=== PATIENT | male | born 1940 | race Caucasian/White ===

== ENCOUNTER 2018-02-18 14:42 | Outpatient (REF) | payer MEDICARE, SELFPAY ==
[2018-02-19 02:01] LABS: HCT 47.4 % (40.0-50.0); HGB 15.6 g/dL (13.5-17.5); Mean Corp. HGB Concentration 32.9 g/dL (32.0-36.0); Mean Corpuscular Hemoglobin 30.3 pg (27.0-33.0); Mean Platelet Volume 11.9 fL (8.0-11.0); Platelet Count 192 x1000/uL (130-400); RBC 5.15 m/cumm (4.50-6.00); RBC Distribution Width 13.7 % (11.8-14.1); White Blood Cell Count 8.32 k/cumm (4.4-10.8)
[2018-02-19 02:06] LABS: ALT 39 U/L (12-78); AST 31 U/L (15-37); Albumin 4.4 g/dL (3.4-5.0); Alkaline Phosphatase 51 U/L (46-116); Anion Gap 8.8 mmol/L (3-11); BUN 15 mg/dL (7-18); Bilirubin, Total 1.1 mg/dL (0.2-1.0); CO2 28.2 mmol/L (21.0-32.0); CREATININE 0.92 mg/dL (0.70-1.30); Calcium 9.3 mg/dL (8.5-10.1); Chloride 103 mmol/L (98-107); Glucose 94 mg/dL (70-100); Potassium 4.1 mmol/L (3.5-5.1); Sodium 140 mmol/L (136-145); Total Protein 8.2 g/dL (6.4-8.2)
[2018-02-19 02:38] LABS: Cholesterol 235 mg/dL (50-200); HDL Cholesterol 46 mg/dL (40-60); LDL CHOLESTEROL 178 mg/dL (<100); Triglyceride 63 mg/dL (30-150)
== END 2018-02-18 14:43 ==
LOC: NCHCN 14:42
PROVIDERS: Visit Provider Family Medicine
DX: E78.5 Hyperlipidemia, unspecified (principal); E11.9 Type 2 diabetes mellitus without complications; I10 Essential (primary) hypertension
CPT/HCPCS: 80053; 80061; 83721; 85027

== ENCOUNTER 2018-03-11 08:59 | Outpatient (REF) | payer MEDICARE, SELFPAY ==
[2018-03-11 22:58] LABS: ALT 49 U/L (12-78); AST 39 U/L (15-37); Albumin 4.3 g/dL (3.4-5.0); Alkaline Phosphatase 47 U/L (46-116); Bilirubin, Total 1.1 mg/dL (0.2-1.0); Total Protein 7.7 g/dL (6.4-8.2)
[2018-03-11 23:25] LABS: Bilirubin, Direct 0.26 mg/dL (0.00-0.20)
== END 2018-03-11 09:19 ==
LOC: NCHCN 08:59
PROVIDERS: Visit Provider Family Medicine
DX: E78.5 Hyperlipidemia, unspecified (principal); I10 Essential (primary) hypertension; E11.9 Type 2 diabetes mellitus without complications
CPT/HCPCS: 80076

== ENCOUNTER 2018-04-24 20:11 | Outpatient (REF) | payer MEDICARE, OTHER, SELFPAY | END 2018-04-24 20:31 | LOC: NCHCN 20:11 | PROVIDERS: Visit Provider Family Medicine | DX: Z79.01 Long term (current) use of anticoagulants (principal); Z53.8 Procedure and treatment not carried out for other reasons | CPT/HCPCS: 85610 ==

== ENCOUNTER 2018-07-06 15:32 | Outpatient (REF) | payer MEDICARE, OTHER, SELFPAY ==
[2018-07-06 21:17] LABS: ALT 48 U/L (12-78); AST 39 U/L (15-37); Albumin 4.3 g/dL (3.4-5.0); Alkaline Phosphatase 45 U/L (46-116); BUN 13 mg/dL (7-18); Bilirubin, Total 1.1 mg/dL (0.2-1.0); CREATININE 0.93 mg/dL (0.70-1.30); Calcium 9.5 mg/dL (8.5-10.1); Chloride 102 mmol/L (98-107); Glucose 95 mg/dL (70-100); Potassium 3.8 mmol/L (3.5-5.1); Sodium 139 mmol/L (136-145); Total Protein 7.5 g/dL (6.4-8.2)
[2018-07-06 21:43] LABS: Absolute Basophil Count 0.04 k/cumm (0.0-0.2); Absolute Eosinophil Count 0.24 k/cumm (0.0-0.7); Absolute Lymphocyte Count 2.26 k/cumm (1.2-3.4); Absolute Monocyte Count 0.83 k/cumm (0.11-0.7); Absolute Neutrophil Count 5.43 k/cumm (1.2-6.7); Basophils % 0.5; Eosinophils % 2.7; HCT 44.7 % (40.0-50.0); Lymphocytes % 25.7; Mean Corp. HGB Concentration 33.6 g/dL (32.0-36.0); Mean Corpuscular Hemoglobin 31.3 pg (27.0-33.0); Mean Corpuscular Volume 93.1 fL (80-95); Mean Platelet Volume 11.6 fL (8.0-11.0); Monocytes % 9.4; Neutrophils % 61.7; Platelet Count 179 x1000/uL (130-400); RBC Distribution Width 13.1 % (11.8-14.1)
[2018-07-06 22:58] LABS: Bacteria Rare HPF (Negative); C & S Indicated? No; Casts Negative LPF (Negative); Crystals Negative HPF (Negative); Epithelial Cells Rare HPF (Negative); Mucus Negative (Negative); Other Cells Negative (Negative); RBC Negative (0-2); WBC 0-2 HPF (0-5)
== END 2018-07-06 15:52 ==
LOC: NCHCN 15:32
PROVIDERS: Visit Provider Family Medicine
DX: R31.9 Hematuria, unspecified (principal)
CPT/HCPCS: 80053; 81015; 85025

== ENCOUNTER 2019-02-03 09:31 | Outpatient (REF) | payer MEDICARE, OTHER, SELFPAY ==
[2019-02-03 22:01] LABS: Calculated LDL 147 mg/dL; Cholesterol 200 mg/dL (50-200); HDL Cholesterol 44 mg/dL (40-60); Triglyceride 47 mg/dL (30-150)
== END 2019-02-03 09:51 ==
LOC: NCHCN 09:31
PROVIDERS: Visit Provider Registered Nurse
DX: E78.5 Hyperlipidemia, unspecified (principal)
CPT/HCPCS: 80061; 83721

== ENCOUNTER 2020-05-17 22:51 | Outpatient (REF) | payer MEDICARE, OTHER, SELFPAY ==
[2020-05-17 22:25] LABS: Anion Gap 10.7 mmol/L (3-11); BUN 19 mg/dL (7-18); CO2 26.3 mmol/L (21.0-32.0); CREATININE 0.93 mg/dL (0.70-1.30); Calcium 9.2 mg/dL (8.5-10.1); Chloride 104 mmol/L (98-107); Glucose 112 mg/dL (74-106); Sodium 141 mmol/L (136-145)
== END 2020-05-17 23:11 ==
LOC: NCHCN 22:51
PROVIDERS: Visit Provider Registered Nurse
DX: I10 Essential (primary) hypertension (principal); R73.03 Prediabetes; I48.91 Unspecified atrial fibrillation
CPT/HCPCS: 80048

== ENCOUNTER 2020-11-15 07:55 | Outpatient (REF) | payer MEDICARE, OTHER, SELFPAY ==
[2020-11-15 22:04] LABS: Calculated LDL 161 mg/dL (<100); Cholesterol 213 mg/dL (<200); HDL Cholesterol 40 mg/dL (40-60); Triglyceride 64 mg/dL (<150)
[2020-11-15 22:07] LABS: Hemoglobin A1C 5.8 % (<5.7)
== END 2020-11-15 07:56 | disposition home or self-care (01) ==
LOC: NCHCN 07:55
PROVIDERS: Visit Provider Registered Nurse
DX: R73.03 Prediabetes (principal); E78.5 Hyperlipidemia, unspecified
CPT/HCPCS: 80061; 83036

== ENCOUNTER 2023-06-28 18:45 | Emergency (ER) | payer MEDICARE, OTHER, SELFPAY ==
[2023-06-28] VITALS (9 sets, daily range): BP systolic 109–147; BP diastolic 53–93; PULSE 67–108; RESP 18; TEMP 36.5–36.6; O2SAT 100
--- NOTE | 2023-06-28 18:18 | NUR.NOTE ---
Accessed pt [facility] for patient information. [facility] has no past medical history. Nursing Note:
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
[2023-06-28 20:42] LABS: Abs Immature Grans 0.08 10^3/uL (0.0-0.06); Absolute Lymphocyte Count 1.32 10^3/uL (1.2-3.4); Absolute Monocyte Count 1.31 10^3/uL (0.1-0.8); Basophils % 0.3; Eosinophils % 0.1; HCT 41.5 % (40.0-50.0); HGB 14.5 g/dL (13.5-17.5); Immature Grans % 0.5; Lymphocytes % 8.9; MCH 31.4 pg (27.0-33.0); MCHC 34.9 % (32.0-36.0); MCV 90 fL (80-95); MPV 10.3 fL (8.0-11.0); Monocytes % 8.8; Neutrophils % 81.4; Platelet Count 216 10^3/uL (130-400); RBC 4.62 10^6/uL (4.36-5.78); WBC 14.87 10^3/uL (4.4-10.8)
[2023-06-28 20:43] LABS: Absolute Basophil Count 0.04 10^3/uL (0.0-0.2); Absolute Eosinophil Count 0.01 10^3/uL (0.0-0.7)
[2023-06-28 21:06] LABS: ALT 38 U/L (16-63); AST 43 U/L (15-37); Albumin 3.2 g/dL (3.4-5.0); Alkaline Phosphatase 49 U/L (46-116); Anion Gap 10.3 mmol/L (3-11); BUN 23 mg/dL (7-18); Bilirubin, Total 0.9 mg/dL (0.2-1.0); CO2 28.7 mmol/L (21.0-32.0); CREATININE 1.1 mg/dL (0.70-1.30); Calcium 9.5 mg/dL (8.5-10.1); Chloride 103 mmol/L (98-107); ETHANOL BLOOD < 3.0 mg/dL (<10); Estimated GFR 67.44 (mL/min/1.73m2); Glucose 122 mg/dL (74-106); Potassium 3.7 mmol/L (3.5-5.1); Sodium 142 mmol/L (136-145); TSH (W/Ref FT4) 0.79 uIU/mL (0.36-3.74); Total Protein 7.1 g/dL (6.4-8.2)
[2023-06-28 21:07] LABS: Acetaminophen < 2 ug/mL (10-30); Salicylate < 2.8 mg/dL (<2.8)
--- NOTE | 2023-06-28 21:30 | TELEP.MEDR_ITS ---
Date of service: 06/28/23 Time of Service: 21:30 Telepharmacy Home Med Rec Allergies Allergies: statins Allergy (Intermediate, Uncoded 06/28/23 19:21) Other (See Comment) Interview Person Interviewed: pt is unable to review his medication list and a family member or caregiver is not available Sources Sources used to compile medication list: Other Changes made to Home Medication List: ADDITIONS: unable to complete med review DELETIONS: see below CHANGES: see below Additional Notes Additional Notes: pt is unable to participate in a med review and I am unable to verify any of the meds listed below or last dose taken. I found a note from Letitia Sorensen MD with psychiatry in the pt's EPIC chart . The med list as of 06/13/23 is.... amlodipine 2.5 mg po daily donepezil 5 mg po every evening melatonin 3 mg po at bedtime memantine 10 mg 2x daily metoprolol succinate (Toprol XL) 50 mg at bedtime Miralax 17 gm po daily rivaroxaban 20 mg po every evening sertraline 50 mg po every evening simvastatin 20 mg po at bedtime Recommended Changes Recommended Changes(reason for recommendation): Telepharmacy was unsuccessful at completing medication review. Pt is unable to participate and no family member or caregiver available. We used a med list found in the pt's EPIC chart from 06/13/23 to compile the list above. If circumstances change that would allow for review of medications for this inpatient encounter, please contact the [facility] Medication Reconciliation Pharmacist at .
--- NOTE | 2023-06-28 22:17 | W.EDPROG ---
Date of service: 06/28/23 Time of Service: 22:55 Medical Decision Making This patient was signed out to me. Please see previous notes for H&P and initial eval. In brief, 83yo M presenting with suicidal behavior, agitation. Medically cleared, evalauted by [facility]. EE paperwork completed, pending second cert and placement. Overnight patient transferred to [facility]. Home meds ordered. No acute behavioral events. Signed out to oncoming physician, awaiting second cert and placement. Quality:[facility] Health Related Social Needs: No Data to Display Sign Out Sign Out Data: Sign Out Comment: EE filled out, medically cleared psychosis, SI, aggressive behavior hasn't required any medications in ED pending second cert Last updated by Martha Cameron MD at 06/28/23 23:22 Sign Out Comment: 83yo M here with psychosis, SI, aggressive behavior. No aggression while in the ED. Medically cleared, home meds ordered, EE done. Pending 2nd cert and placement. Last updated by Yolanda Cox MD at 06/29/23 04:35 Discharge Plan Discharge Details Chief Complaint: PsychEval Clinical Impression: Aggressive behavior, Suicide attempt Primary Care Provider: Unknown,Unknown ED Provider: Yolanda Cox Home Meds and New Rx's Prescriptions: No Action Xarelto 20 mg tablet 20 mg PO DAILY Rx Instructions: must administer with evening meal metoprolol succinate 50 mg tablet extended release 24 hr 50 mg PO DAILY senna 8.6 mg capsule 8.6 mg PO QD-BID PRN melatonin 3 mg capsule 3 mg PO HS PRN lorazepam [Ativan] 0.5 mg tablet 0.5 mg PO TID risperidone [Risperdal] 0.5 mg tablet 0.5 mg PO BID olanzapine [Zyprexa] 5 mg tablet 5 mg PO BID amlodipine 5 mg tablet 5 mg PO DAILY sertraline 50 mg tablet 50 mg PO DAILY memantine 5 mg tablet 5 mg PO BID polyethylene glycol 3350 [Miralax] 17 gram/dose powder 17 g PO DAILY PRN
[2023-06-28 22:49] LABS: Bilirubin Small (Negative); Blood Negative (Negative); Clarity Clear (Clear); Glucose Negative (Negative); Ketones 15 mg/dL (Negative); Leukocyte Esterase Negative (Negative); Nitrite Negative (Negative)
[2023-06-28 22:56] LABS: RBC Negative HPF (0-2); WBC Negative HPF (0-5)
[2023-06-28 22:57] LABS: Bacteria Rare HPF (Negative); C & S Indicated? No; Casts Negative LPF (Negative); Crystals Negative HPF (Negative); Epithelial Cells Rare HPF (Negative); Mucus Negative (Negative)
[2023-06-28 23:03] LABS: *AMPHETAMINES SCREEN URINE Negative (Negative); *BARBITURATES SCREEN URINE Negative (Negative); *BENZODIAZEPINES SCREEN URINE Negative (Negative); Cannabinoids THC Negative (Negative); Cocaine Screen,Urine Negative (Negative); METHADONE URINE SCREEN Negative (Negative); OPIATES URINE SCREEN Negative (Negative)
[2023-06-28 23:09] LABS: Tricyclic Antidepressants Negative (Negative)
--- NOTE | 2023-06-28 23:58 | NUR.NOTE ---
PT was bladder scanned and 151ml urine was in bladder.Nursing Note:
--- NOTE | 2023-06-29 03:34 | NUR.NOTE ---
VT updated on PT status Nursing Note:
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
[2023-06-29] MEDS: amLODIPine 5 MG TAB PO (08:09)
[2023-06-29] MEDS: Memantine 5 MG TAB PO (08:10)
[2023-06-29] MEDS: Sertraline 50 MG TAB PO (08:11)
[2023-06-29] MEDS: risperiDONE 0.5 MG TAB PO (08:11)
[2023-06-29] MEDS: OLANZapine 5 MG TAB PO (08:13)
[2023-06-29 08:30] VITALS: BP 116/71; PULSE 99; RESP 18; TEMP 37.2; O2SAT 99
[2023-06-29] MEDS: Metoprolol CR 50 MG TABCR PO (08:30)
--- NOTE | 2023-06-29 09:26 | CMSP_ITS ---
Date of service: 06/29/23 Time of Service: 09:26 Care Management Safety Plan Status Status: Involuntary Reason for Wait Reason for Wait: Assessment/Screening Safety Plan Safety Plan: INVOLUNTARY FOR INPATIENT PSYCHIATRIC STABILIZATION.? Patient has reportedly been calm and cooperative thus far at [facility]. Awaiting second certification by [facility] Psychiatrist. Safety plan has been established with patient, and care team, to adhere to patient goals, identify restrictions based on behavioral status, address nutrition, and determine allowed personal belongings, tools for hygiene and personal care. Determine level of activity including ambulation, level of supervision, visitors, and determine privileges based on behaviors and level of engagement by pt. SAFETY PLAN: 1. Will remain on suicide precautions, in paper clothes 2. Will remain in Zone B under direct supervision of one-on-one staff at all times provided by [employer]; BROCK, SENIOR QA TESTER reheat furnace operator. 3. May have paper cups, plates, finger foods as well as a cardboard spoon with which to eat meals. 4. Follow [facility] Management of the Admitted Behavioral Health Patient policy. 5. Shower available in Zone B without restriction. 6. Personal belongings-soft items permitted at RN discretion. 7. Visitors-none at this time. 8. Activities: soft cart items approved per RN discretion. 9.? Bathroom available in Zone B without restriction. 10. Phone: limited to [facility] cordless phone at RN discretion. Due to INVOLUNTARY status, patient is being held at [facility] by the Department of Mental Health ([facility]) until 2nd certification by [facility] Psychiatrist can be performed (within 24 hours). Staff will provide de-escalation support (CPI) as needed. If patient wishes to leave [facility], staff will contact [facility] Crisis Screener ([phone]) and Grinder Set Up Operator Internal ([phone]) as soon as possible. In the event of elopement, notify [place] [employer] ([phone]). Patient is currently involuntarily at [facility]. [facility] Frontline Pallet Stone Inserter will continue seeking placement. Please contact the Grinder Set Up Operator Internal for any needed changes to Safety Plan. Safety plan has been provided to interdepartmental care team. Patient will be transported by [employer] at time of discharge.
--- NOTE | 2023-06-29 09:26 | PDOC.CMSAFE ---
Date of service: 06/29/23 Time of Service: 09:26 Care Management Safety Plan Status Status: Involuntary Reason for Wait Reason for Wait: Assessment/Screening Safety Plan Safety Plan: INVOLUNTARY FOR INPATIENT PSYCHIATRIC STABILIZATION.? Patient has reportedly been calm and cooperative thus far at [facility]. Awaiting second certification by [facility] Psychiatrist. Safety plan has been established with patient, and care team, to adhere to patient goals, identify restrictions based on behavioral status, address nutrition, and determine allowed personal belongings, tools for hygiene and personal care. Determine level of activity including ambulation, level of supervision, visitors, and determine privileges based on behaviors and level of engagement by pt. SAFETY PLAN: 1. Will remain on suicide precautions, in paper clothes 2. Will remain in Zone B under direct supervision of one-on-one staff at all times provided by [employer]; BROCK, SALVAGE REPAIRER insurance licensing supervisor. 3. May have paper cups, plates, finger foods as well as a cardboard spoon with which to eat meals. 4. Follow [facility] Management of the Admitted Behavioral Health Patient policy. 5. Shower available in Zone B without restriction. 6. Personal belongings-soft items permitted at RN discretion. 7. Visitors-none at this time. 8. Activities: soft cart items approved per RN discretion. 9.? Bathroom available in Zone B without restriction. 10. Phone: limited to [facility] cordless phone at RN discretion. Due to INVOLUNTARY status, patient is being held at [facility] by the Department of Mental Health ([facility]) until 2nd certification by [facility] Psychiatrist can be performed (within 24 hours). Staff will provide de-escalation support (CPI) as needed. If patient wishes to leave [facility], staff will contact [facility] Crisis Screener ([phone]) and Perfume Compounder ([phone]) as soon as possible. In the event of elopement, notify [place] [employer] ([phone]). Patient is currently involuntarily at [facility]. [facility] Frontline Account Consultant will continue seeking placement. Please contact the Perfume Compounder for any needed changes to Safety Plan. Safety plan has been provided to interdepartmental care team. Patient will be transported by [employer] at time of discharge.
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
[2023-06-29] MEDS: Acetaminophen 500 MG TAB 1000 MG PO (10:09)
--- NOTE | 2023-06-29 10:09 | NUR.NOTE ---
Nursing Note: Provided with partial med list procured from pt's daughter, Victoria, by physician. Call placed to daughter to clarify medication differences. Per daughter, three medications (olanzapine 5 mg BID, Risperidone 0.5 mg BID, and Lorazepam 0.5 mg TID) were tapered off a year ago. Per daughter, pt had complications to these meds, specifically tremors. Though daughter states, his behavior was better then. Not on current list, Aricept 5mg QD, prescribed as an experiment, because schizophrenia is really rare for his age. Also updated is the dose change of Amlodipine 2.5 mg QD vs 5.0 mg in current records, and simvastatin 20mg QD.
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
--- NOTE | 2023-06-29 17:15 | DI.CT_ITS ---
Exam(s) CT HEAD WO EXAM: CT HEAD WO CLINICAL HISTORY: Altered mental status. TECHNIQUE: Imaging Protocol: Axial computed tomography images with coronal and sagittal reformatted images were created and reviewed COMPARISON: No exams were available for comparison FINDINGS: Ventricles and Extra axial spaces: Normal in size and morphology for the patient's age. Hemorrhage: None. Cerebral parenchyma: There are areas of decreased attenuation in the white matter most consistent wit h small vessel ischemic disease. No acute mass effect. Midline shift: None. Brainstem/Cerebellum: Normal. Calvarium: Normal. Visualized Paranasal sinuses/Mastoids: Clear. Soft Tissues: Unremarkable. IMPRESSION: No acute intracranial process. RADIATION DOSE DELIVERED: 678.9mGy.cm Total DLP DATA REPOSITORY: All CT scans at this facility are submitted to the National Radiology Data Registry (NRDR) Dose Index Registry (DIR) with the [employer] (ACR). RADIATION OPTIMIZATION: All CT scans at this facility use at least one of these dose optimization te chniques: automated exposure control; mA and/or kV adjustment per patient size (includes targeted exa ms where dose is matched to clinical indication); or iterative reconstruction.
--- NOTE | 2023-06-29 18:17 | DI.VRAD_ITS ---
PROCEDURE INFORMATION: Exam: CT Head Without Contrast Exam date and time: 06/29/2023 5:53 PM Age: 83 years old Clinical indication: Altered mental status/memory loss TECHNIQUE: Imaging protocol: Computed tomography of the head without contrast. COMPARISON: No relevant prior studies available. FINDINGS: Brain: Diffuse cerebral atrophy, consistent with patient's age. Cerebral ventricles: Ventricles are in proportion to the degree of atrophy. Paranasal sinuses: Visualized sinuses are unremarkable. No fluid levels. Mastoid air cells: Visualized mastoid air cells are well aerated. Bones/joints: There are vertebral and internal carotid artery calcifications. Soft tissues: There is a right parietal scalp calcification, likely representing an epidermoid or sebaceous cyst. IMPRESSION: No large territorial infarct or intracranial bleed. Dictated and Authenticated by: John Ramirez MD. Ordering:MAUREEN German MD
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
--- NOTE | 2023-06-30 02:25 | NUR.NOTE ---
Assumed care of pt at 2200, pt sleeping and has not had his 2000 meds, FPJose Alfredo
--- NOTE | 2023-06-30 03:13 | NUR.NOTE ---
Pt is awake and wandering around, he refused his medications, he is trying to open doors to the outside to get out, FPJ
[2023-06-30 07:30] VITALS: BP 134/83; PULSE 97; RESP 18; TEMP 36.4; O2SAT 97
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
--- NOTE | 2023-06-30 17:57 | CMSP_ITS ---
Date of service: 06/30/23 Time of Service: 17:58 Care Management Safety Plan Status Status: Voluntary Reason for Wait Reason for Wait: Inpatient Admission Safety Plan Safety Plan: Pt was initially brought to [facility] involuntarily. A second certification was completed and not upheld, therefore Jorge Luis is currently voluntary, and may leave, if he so desires. The recommendation from the care team at this time is psychiatric stabilization; referrals were placed at [facility] and [facility] for geriatric psychiatric stabilization. VOLUNTARY FOR INPATIENT PSYCHIATRIC STABILIZATION.? Patient is appropriate in all interactions since arriving at [facility]; Pt has demonstrated appropriate coping and communication skills, has articulated his or her needs and concerns and is fully engaged during staff interactions. Safety plan has been established with patient, and care team, to adhere to patient goals, identify restrictions based on behavioral status, address nutrition, and determine allowed personal belongings, tools for hygiene and personal care. Determine level of activity including ambulation, level of supervision, visitors, and determine privileges based on behaviors and level of engagement by pt. SAFETY PLAN: 1. Will remain on suicide precautions, in paper clothes 2. Will remain in Zone B under direct supervision of one-on-one staff at all times provided by [employer]; [employer], SHIPFITTERS SUPERVISOR barrel inspector. 3. May have paper cups, plates, finger foods as well as a cardboard spoon with which to eat meals. 4. Follow [facility] Management of the Admitted Behavioral Health Patient policy. 5. Shower available in Zone B without restriction. 6. Personal belongings-soft items permitted at RN discretion. 7. Visitors-none at this time. 8. Activities: soft cart items approved per RN discretion. 9.? Bathroom available in Zone B without restriction. 10. Phone: limited to [facility] cordless phone at RN discretion. Due to VOLUNTARY status, if patient wishes to leave [facility], staff will contact [facility] Crisis Screener ([phone]), available 13/01, and On-Call Steam Fitter Supervisor ([phone]), available during regular business hours, as soon as possible. In the event of elopement, notify [facility] Police ([phone]). Patient is currently voluntarily at [facility] and seeking inpatient admission when a bed becomes available. [facility] Frontline Depot Agent will continue seeking placement. Please contact the [employer] Field Processing Supervisor Steam Fitter Supervisor ([phone]) and [facility] Depot Agent ([phone]) for any needed changes in the Safety Plan. Safety plan has been provided to interdepartmental care team.
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
[2023-07-01] MEDS: OLANZapine 5 MG TAB PO (01:53)
[2023-07-01] MEDS: risperiDONE 0.5 MG TAB PO (01:53)
[2023-07-01] MEDS: Memantine 5 MG TAB PO (01:53)
[2023-07-01] MEDS: Rivaroxaban 10 MG TABLET 20 MG PO (01:54)
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
[2023-07-01 07:38] VITALS: BP 117/75; PULSE 66; RESP 16; TEMP 36.6; O2SAT 94
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
--- NOTE | 2023-07-04 19:37 | NUR.NOTE ---
Patient transferred to [facility]. Hearing aides were left behind. I tried calling his daughter and the phone number is no longer in service. Nursing Note:
== END 2023-07-01 13:45 ==
PROVIDERS: Emergency Medicine; Emergency Provider Emergency Medicine
DX: T14.91XA Suicide attempt, initial encounter (principal); R41.82 Altered mental status, unspecified
CPT/HCPCS: 00123; 36415; 80053; 80307; 87635; 99285; H0046; 70450; 80320; 80329; 81003; 81015; 84443; 85025

== ENCOUNTER 2023-07-09 14:38 | Inpatient (IN) | payer MEDICARE, OTHER, SELFPAY ==
[2023-07-09 13:10] VITALS: BP 124/71; PULSE 86; RESP 18; TEMP 36.4; O2SAT 99
[2023-07-09] MEDS: Memantine 5 MG TAB 10 MG PO (21:12)
[2023-07-09] MEDS: traZODone 50 MG TAB PO (21:12)
[2023-07-09] MEDS: OLANZapine 5 MG TAB PO (21:12)
--- NOTE | 2023-07-09 23:27 | NUR.NOTE ---
Pt is very restless in his room. He paces and frequently walks down the hallways looking for a way out. He has visual and auditory hallucinations. He stated that planes are landing and he needs to direct them to his room. He then put his hand by his ear and said, I can hear them coming. He also took off his shirt in his room and was standing getting a treatment done. RN and staff re-orient pt with every interaction but he remains confused. Pt did take all evening medications. Security and all staff assisting with observing pt for his safety. He refuses to have a bed alarm/Swift alarm under him. When placed on the chair he removes it and states, I don't need that thing. Pt room is close to nursing station. Pt is steady when ambulating. skelp processor and nursing catastrophe claims supervisor aware of pt condition. Nursing Note:
[2023-07-10 00:17] VITALS: BP 127/75; PULSE 87; RESP 17; TEMP 36.4; O2SAT 99
[2023-07-10 07:51] VITALS: BP 130/72; PULSE 88; RESP 18; TEMP 36.2; O2SAT 95
[2023-07-10] MEDS: Sertraline 50 MG TAB PO (08:15)
[2023-07-10] MEDS: Metoprolol CR 50 MG TABCR PO (08:15)
[2023-07-10] MEDS: Rivaroxaban 10 MG TABLET 20 MG PO (08:15)
--- NOTE | 2023-07-10 08:15 | PDOC.CMIN ---
Date of service: 07/10/23 Time of Service: 08:15 Care Management Initial Assmt Initial Assessment PREVIOUS FUNCTIONAL STATUS/SOCIAL/FAMILY SUPPORTS:: Jorge Luis lives alone in [place]. ADVANCE DIRECTIVES:: none PFSH All Active Problems (Updated 06/28/23 @ 22:59 by Martha Cameron MD) Suicide attempt (Acute) Aggressive behavior (Acute) Social History Smoking risk assessment performed?: No SDOH(Care Management) Screening Will the Patient Participate in the Screening?: Unable to obtain
[2023-07-10] MEDS: amLODIPine 5 MG TAB PO (08:16)
[2023-07-10] MEDS: Memantine 5 MG TAB 10 MG PO ×2 (08:16→20:39)
[2023-07-10] MEDS: OLANZapine 5 MG TAB PO ×2 (08:24→20:38)
--- NOTE | 2023-07-10 08:30 | CMSA_ITS ---
Date of service: 07/10/23 Time of Service: 08:30 SB Psychosocial/Act. [facility] Hospital Admission Admission Date: 07/09/23 Admission From:: [facility] Diagnosis:: Lewie body dementia with behavioral disturbances Swing Bed Admission Swing Bed Admit Date:: 07/09/23 Swing Bed Level of Care: Level 2/ICF Social Supports PREVIOUS FUNCTIONAL STATUS/SOCIAL/FAMILY SUPPORTS:: Jorge Luis lives alone in a single family home in [place]. 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 He is impulsive and cannot be left alone. Effortds sre underway to secure placement for him an a SNF or other care setting where he can be supervised. Hand Laster: Felisa Vallecillo Date Assessment was completed:: 07/09/23
--- NOTE | 2023-07-10 08:33 | CMSCP_ITS ---
Date of service: 07/10/23 Time of Service: 08:33 Swingbed Plan of Care Activites/Discharge Plan of care: SWING BED PROGRAM ACTIVITIES/DISCHARGE PLAN OF CARE ACTIVITIES PLAN Date:07/10/23 Identified Need:individualized activity plan Intervention/Plan:Jorge Luis enjoys walking and interacting with staff. He has been unable to concentrate on puzzles or coloring books from the activity cart. He would enjoy pet therapy or music therapy if available. Initials [facility] DISCHARGE PLAN Date:07/10/23 Identified Need:safe discharge plan. Intervention/Plan:Referrals have been sent to all of the SNFs in [place] and several in [place] and [place]. No bed offers have been received. Jorge Luis will remain at [facility] until a safe discharge plan can be formulated. [facility]
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
--- NOTE | 2023-07-10 14:45 | PDOC.CMIN ---
Date of service: 07/10/23 Time of Service: 14:46 Care Management Initial Assmt Initial Assessment REASON FOR HOSPITALIZATION:: psychiatric/terminal gauger supervisor placement PREVIOUS FUNCTIONAL STATUS/SOCIAL/FAMILY SUPPORTS:: Jorge Luis lives alone in a single family home in [facility]. He has 2 daughters, Christy and Victoria who is his DPOA and HCA. He is independent with ADLs however he does currently have psychiatric issues that may impede his ability to acre for himself. CURRENT FUNCTIONAL STATUS:: Jorge Luis was sitting in a chair when CM met with him. He has been restless all morning and continues to try to leave, however has been redirectable and returns to his room. He has not been aggressive and has cooperated with care. CM spoke with patient's daughter Victoria Horner who is his DPOA. She stated that her father had his first psychotic break in 2020 after caring for his disabled for several years. He was hospitalized at that time and did quite well and was able to return home and live independently. He has been followed by [facility]. Victoria's plan is to have her father placed in terminal gauger supervisor care. Jorge Luis does not have a payer source and a long-term Medicaid application has not been completed. Victoria intends to work on that this weekend. he is currently in SB-2, self pay status. ADVANCE DIRECTIVES:: none Has patient been provided with info about the portal/API?: Yes Did the patient sign up for the portal?: No CODE STATUS:: Full Code INSURANCE COVERAGE / FINANCIAL ISSUES:: Medicare PRIMARY CARE PHYSICIAN:: unknown POTENTIAL DISCHARGE NEEDS:: placement in a long-term care facility ANTICIPATED BARRIERS TO DISCHARGE:: securing a bed in a LTC facility TRANSPORTATION:: to be determined by disposition PLAN:: Jorge Luis has no clear discharge plan at this time. His daughter wants him placed in terminal gauger supervisor care however he does not have a payer source and is not necessarily in agreement. He was sent to [facility] following a brief stay at [facility] facility in [place], [place]. PFSH All Active Problems (Updated 07/10/23 @ 14:07 by Anna Lira NP) Psychiatric disorder (Acute) Suicide attempt (Acute) Aggressive behavior (Acute) Social History Smoking risk assessment performed?: No SDOH(Care Management) Screening Will the Patient Participate in the Screening?: Unable to obtain
[2023-07-10] MEDS: Polyethylene Glycol 3350 17 GM PACKET PO (16:56)
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
[2023-07-10 20:00] VITALS: BP 128/79; PULSE 95; RESP 18; TEMP 36.9; O2SAT 98
[2023-07-10] MEDS: traZODone 50 MG TAB PO (20:38)
[2023-07-10] MEDS: Melatonin 3 MG TAB 6 MG PO (20:39)
[2023-07-11 07:24] VITALS: BP 110/72; PULSE 95; RESP 18; TEMP 36.2; O2SAT 97
[2023-07-11] MEDS: OLANZapine 5 MG TAB PO (08:17)
[2023-07-11] MEDS: Metoprolol CR 50 MG TABCR PO (08:18)
--- NOTE | 2023-07-11 09:42 | NUR.NOTE ---
Pt was suspicious this am and refused most of his morning meds, only took metoprolol and olanzapine. Pt has been on the toilet several times this am with no BM, offered miralax or prune juice, he declined. Pt has a concerned look on his face, so distance given as he clearly is not trusting nursing at this time. Nursing Note:
[2023-07-11 15:08] VITALS: BP 120/67; PULSE 87; RESP 18; TEMP 36; O2SAT 99
--- NOTE | 2023-07-11 16:23 | PDOC.CMPRO ---
Date of service: 07/11/23 Time of Service: 16:23 Care Management Progress Note Progress Note Text Progress Note Text: Jorge Luis remains in SB-2 status. He took some of his medications this morning but refused others. CM spoke to his daughter Victoria on the phone today and discussed the challenges of determining capacity and the impact that will have on her DPOA status. Jorge Luis was seen by Dr. Morillo yesterday who recommended that a psychiatric consultation be obtained to address the question of capacity. Jorge Luis has psychiatric issues with paranoia and elements of psychosis and she felt that a psychiatrist would be best suited to do the evaluation. The consult was ordered.
[2023-07-12 07:30] VITALS: BP 122/68; PULSE 92; RESP 16; TEMP 36.7; O2SAT 99
[2023-07-12] MEDS: Rivaroxaban 10 MG TABLET 20 MG PO (07:31)
[2023-07-12] MEDS: Metoprolol CR 50 MG TABCR PO (07:31)
[2023-07-12] MEDS: amLODIPine 5 MG TAB PO (07:31)
[2023-07-12] MEDS: Memantine 5 MG TAB 10 MG PO (07:31)
[2023-07-12] MEDS: Sertraline 50 MG TAB PO (07:31)
[2023-07-12] MEDS: OLANZapine 5 MG TAB PO (07:31)
[2023-07-12] MEDS: Milk of Magnesia 30 ML CUP PO (08:43)
[2023-07-12] MEDS: Polyethylene Glycol 3350 17 GM PACKET PO (18:10)
[2023-07-13] MEDS: Memantine 5 MG TAB 10 MG PO (08:53)
[2023-07-13] MEDS: Rivaroxaban 10 MG TABLET 20 MG PO (08:53)
[2023-07-13] MEDS: OLANZapine 5 MG TAB PO (08:53)
[2023-07-13] MEDS: amLODIPine 5 MG TAB PO (08:53)
[2023-07-13] MEDS: Metoprolol CR 50 MG TABCR PO (08:53)
[2023-07-13] MEDS: Sertraline 50 MG TAB PO (08:53)
[2023-07-13] MEDS: Milk of Magnesia 30 ML CUP PO (11:31)
[2023-07-13 15:46] VITALS: BP 131/71; PULSE 64; RESP 18; TEMP 36.9; O2SAT 98
[2023-07-14 10:03] VITALS: BP 107/71; PULSE 74; RESP 18; TEMP 36.4; O2SAT 97
[2023-07-14 14:51] VITALS: BP 118/83; PULSE 86; RESP 18; TEMP 36.3; O2SAT 99
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
[2023-07-15 06:15] VITALS: BP 155/90; PULSE 91; RESP 16; TEMP 36.1; O2SAT 98
[2023-07-15] MEDS: Metoprolol CR 50 MG TABCR PO (07:21)
[2023-07-15] MEDS: amLODIPine 5 MG TAB PO (07:21)
[2023-07-15] MEDS: Sertraline 50 MG TAB PO (07:21)
[2023-07-15] MEDS: Rivaroxaban 10 MG TABLET 20 MG PO (07:21)
[2023-07-15] MEDS: Memantine 5 MG TAB 10 MG PO (07:21)
[2023-07-15] MEDS: OLANZapine 5 MG TAB PO (07:21)
[2023-07-15 14:14] VITALS: BP 114/76; PULSE 64; RESP 16; TEMP 36.1; O2SAT 98
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
== END 2023-07-15 21:41 | DRG 57 ==
PROVIDERS: Admitting Provider Family Medicine; Visit Provider Family Medicine
DX: G31.83 Neurocognitive disorder with Lewy bodies (principal); F02.82 Dementia in other diseases classified elsewhere, unspecified severity, with psychotic disturbance; Z91.51 Personal history of suicidal behavior; I10 Essential (primary) hypertension
CPT/HCPCS: 00123; 99305; 99316

== ENCOUNTER 2023-07-15 21:02 | Inpatient (IN) | payer MEDICARE, OTHER, SELFPAY ==
[2023-07-15 21:42] VITALS: BP 122/79; PULSE 80; RESP 16; TEMP 36.8; O2SAT 97
[2023-07-15 21:56] VITALS: RESP 16
[2023-07-15 22:06] VITALS: BP 122/79; PULSE 80; RESP 16; TEMP 36.8; O2SAT 97
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
--- NOTE | 2023-07-15 22:42 | ED.GENADUL_ITS ---
HPI General Date/Time Provider Initiated Documentation: 07/15/23 21:49 . Limitations to Documentation: altered mental status . Information obtained by: patient and RN/MD . HPI Narrative: 83-year-old male with history of Lewy body dementia with psychosis, was hospitalized on swing bed and deemed to lack decision-making capacity. It was felt that patient cannot be safely discharged. Patient has been labile and at times aggressive. Hospital administration shows patient will be best served in zone B while awaiting placement in an appropriate facility.. Patient was discharged from [facility] and transferred to the emergency department. He has no complaints. Related Data Home Medications Medication Instructions Recorded Confirmed metoprolol succinate 50 mg 50 mg PO DAILY 06/28/23 07/15/23 tablet,extended release 24 hr polyethylene glycol 3350 17 17 g PO DAILY PRN 06/28/23 07/15/23 gram/dose oral powder (Miralax) rivaroxaban 20 mg tablet (Xarelto) 20 mg PO DAILY 06/28/23 07/15/23 sertraline 50 mg tablet 50 mg PO DAILY 06/28/23 07/15/23 memantine 10 mg tablet 10 mg PO BID 07/09/23 07/15/23 acetaminophen 325 mg tablet 650 mg (2 x 325 mg) PO Q6H PRN PRN 07/15/23 07/15/23 #0 tabs amlodipine 5 mg tablet 5 mg PO DAILY #0 tabs 07/15/23 07/15/23 docusate sodium 100 mg capsule 100 mg PO BID PRN PRN Constipation 07/15/23 07/15/23 (Colace) #0 caps magnesium hydroxide 400 mg/5 mL 30 ml PO DAILY PRN PRN ##0 07/15/23 07/15/23 oral suspension (Milk of Magnesia) melatonin 3 mg capsule 6 mg (2 x 3 mg) PO HS PRN #0 caps 07/15/23 07/15/23 olanzapine 5 mg tablet 5 mg PO BID #0 tabs 07/15/23 07/15/23 trazodone 50 mg tablet 50 mg PO HS #0 tabs 07/15/23 07/15/23 Previous Rx's Medication Instructions Recorded acetaminophen 325 mg tablet 650 mg (2 x 325 mg) PO Q6H PRN PRN 07/15/23 #0 tabs amlodipine 5 mg tablet 5 mg PO DAILY #0 tabs 07/15/23 docusate sodium 100 mg capsule 100 mg PO BID PRN PRN Constipation 07/15/23 (Colace) #0 caps magnesium hydroxide 400 mg/5 mL 30 ml PO DAILY PRN PRN ##0 07/15/23 oral suspension (Milk of Magnesia) melatonin 3 mg capsule 6 mg (2 x 3 mg) PO HS PRN #0 caps 07/15/23 olanzapine 5 mg tablet 5 mg PO BID #0 tabs 07/15/23 trazodone 50 mg tablet 50 mg PO HS #0 tabs 07/15/23 Allergies Allergy/AdvReac Type Severity Reaction Status Date / Time statins Allergy Intermediate Other (See Uncoded 07/15/23 21:59 Comment) General Stated Complaint: AMS/LOC JASIEL: 4 Review of Systems Unobtainable due to mental status Exam Const General: cooperative and no acute distress HENMT Head: normocephalic and atraumatic Mouth: moist mucous membranes Eyes Conjunctivae: normal conjunctivae Sclera: normal sclerae Neuro General: patient alert, patient awake and tone normal Cognition: abnormal cognition Speech: speech normal Motor: other (Moving all extremities) Psych Attitude: cooperative Insight: poor Course Vital Signs Vital signs: Vital Signs Temperature 36.8 C 07/15/23 21:42 Pulse 80 07/15/23 21:42 Respiratory Rate 16 07/15/23 21:42 Blood Pressure 122/79 07/15/23 21:42 Pulse Oximetry 97 07/15/23 21:42 Temperature 36.8 C 07/15/23 22:06 Temperature Source Temporal Artery Scan 07/15/23 22:06 Pulse 80 07/15/23 22:06 Respiratory Rate 16 07/15/23 22:06 Respiratory Effort Normal, Non-Labored 07/15/23 21:56 Respiratory Depth Normal 07/15/23 21:56 Respiratory Pattern Normal 07/15/23 21:56 Blood Pressure 122/79 07/15/23 22:06 Blood Pressure Position Sitting 07/15/23 22:06 Pulse Oximetry 97 07/15/23 22:06 Oxygen Delivery Method Room Air 07/15/23 22:06 Oxygen Flow Rate 0 07/15/23 21:42 Pain Level 0 07/15/23 22:06 Medical Decision Making 83-year-old male with history of Lewy body dementia with psychosis, lacks decision-making capacity, transferred from inpatient for to be held while awaiting transfer to appropriate inpatient facility. Patient is cooperative at this time and requesting to rest. Patient was seen by telepsychiatry yesterday and deemed to lack decision-making capacity. Medication recommendations were provided. Plan to follow-up with care management regarding placement. Quality:SDOH Health Related Social Needs: Health related social needs details The patient lives at home alone and does not currently have any heat. PFSH All Active Problems Lewy body dementia with behavioral disturbance (Acute) Patient incapable of making informed decisions (Acute) Encounter for assessment of healthcare decision-making capacity (Acute) Essential hypertension (Acute) Psychosis (Acute) Dementia with behavioral disturbance (Acute) Psychiatric disorder (Acute) Suicide attempt (Acute) Aggressive behavior (Acute) Social History Smoking risk assessment performed?: No Discharge Plan Discharge Details Chief Complaint: AMS/LOC Primary Care Provider: Unknown,Unknown ED Provider: Rey Peck Home Meds and New Rx's Prescriptions: No Action Xarelto 20 mg tablet 20 mg PO DAILY Rx Instructions: must administer with evening meal metoprolol succinate 50 mg tablet extended release 24 hr 50 mg PO DAILY sertraline 50 mg tablet 50 mg PO DAILY polyethylene glycol 3350 [Miralax] 17 gram/dose powder 17 g PO DAILY PRN memantine 10 mg tablet 10 mg PO BID acetaminophen 325 mg Tablet 650 mg PO Q6H PRN PRNQty: 0 0RF trazodone 50 mg Tablet 50 mg PO HS Qty: 0 0RF olanzapine 5 mg Tablet 5 mg PO BID Qty: 0 0RF amlodipine 5 mg Tablet 5 mg PO DAILY Qty: 0 0RF magnesium hydroxide [Milk of Magnesia] 400 mg/5 mL Suspension 30 ml PO DAILY PRN PRNQty: 0 0RF docusate sodium [Colace] 100 mg Capsule 100 mg PO BID PRN PRN (Reason: Constipation) Qty: 0 0RF melatonin 3 mg capsule 6 mg PO HS PRNQty: 0 0RF
--- NOTE | 2023-07-15 23:52 | W.EDPROG ---
Date of service: 07/15/23 Time of Service: 23:52 Medical Decision Making This patient was signed out to me. Please see previous notes for H&P and initial eval. In brief, 83yo M wtih dementia, lacks decision making capacity, requires placement. Telepsych consult placed. Overnight appeared to sleep comfortably. No behavioral events. Signed out to oncoming physician, plan remains as above. Quality:SDOH Health Related Social Needs: Health related social needs details The patient lives at home alone and does not currently have any heat. Sign Out Sign Out Data: Sign Out Comment: 83yo M with Lewy body dementia with psychosis, hospitalized on swing bed and deemed to lack decision-making capacity; felt to be most appropriate for zone B while awaiting placement. Discharged from [place] and transferred to ED. Awaiting placement. Last updated by Yolanda Cox MD at 07/16/23 06:18 Discharge Plan Discharge Details Chief Complaint: AMS/LOC Primary Care Provider: Unknown,Unknown ED Provider: Yolanda Cox Home Meds and New Rx's Prescriptions: No Action Xarelto 20 mg tablet 20 mg PO DAILY Rx Instructions: must administer with evening meal metoprolol succinate 50 mg tablet extended release 24 hr 50 mg PO DAILY sertraline 50 mg tablet 50 mg PO DAILY polyethylene glycol 3350 [Miralax] 17 gram/dose powder 17 g PO DAILY PRN memantine 10 mg tablet 10 mg PO BID acetaminophen 325 mg Tablet 650 mg PO Q6H PRN PRNQty: 0 0RF trazodone 50 mg Tablet 50 mg PO HS Qty: 0 0RF olanzapine 5 mg Tablet 5 mg PO BID Qty: 0 0RF amlodipine 5 mg Tablet 5 mg PO DAILY Qty: 0 0RF magnesium hydroxide [Milk of Magnesia] 400 mg/5 mL Suspension 30 ml PO DAILY PRN PRNQty: 0 0RF docusate sodium [Colace] 100 mg Capsule 100 mg PO BID PRN PRN (Reason: Constipation) Qty: 0 0RF melatonin 3 mg capsule 6 mg PO HS PRNQty: 0 0RF
[2023-07-16] MEDS: Memantine 5 MG TAB 10 MG PO ×2 (08:26→21:40)
[2023-07-16] MEDS: Sertraline 50 MG TAB PO (08:26)
[2023-07-16] MEDS: OLANZapine 5 MG TAB PO ×2 (08:26→21:40)
[2023-07-16] MEDS: amLODIPine 5 MG TAB PO (08:26)
[2023-07-16] MEDS: Metoprolol CR 50 MG TABCR PO (08:26)
[2023-07-16 08:27] VITALS: BP 119/71; PULSE 84; RESP 14; TEMP 37.2; O2SAT 98
[2023-07-16] MEDS: Rivaroxaban 10 MG TABLET 20 MG PO (17:23)
[2023-07-16] MEDS: Melatonin 3 MG TAB 6 MG PO (21:38)
[2023-07-16] MEDS: traZODone 50 MG TAB PO (21:40)
[2023-07-16 22:12] VITALS: BP 111/70; PULSE 65; RESP 18; O2SAT 94
--- NOTE | 2023-07-16 22:13 | NUR.NOTE ---
Assumed care of PT from [facility] Nursing Note:
--- NOTE | 2023-07-16 22:59 | W.EDPROG ---
Date of service: 07/16/23 Time of Service: 23:00 Medical Decision Making This patient was signed out to me. Please see previous notes for H&P and initial eval. In brief, 83yo M with lewey body dementia, lacks decision making capacity, needs facility placement. Remaining in the ED until a placement is found. Overnight no acute events. Appeared to be sleeping comfortably, normal respiratory rate. Did not awaken for assessment. Signed out to oncoming physician; plan remains as above. Quality:SDOH Health Related Social Needs: Health related social needs details The patient lives at home alone and does not currently have any heat. Sign Out Sign Out Data: Sign Out Comment: 83yo M with Lewy body dementia with psychosis, hospitalized on swing bed and deemed to lack decision-making capacity; felt to be most appropriate for zone B while awaiting placement. Discharged from [place] and transferred to ED. Awaiting placement. Last updated by Yolanda Cox MD at 07/16/23 06:18 Sign Out Comment: Lewy body dementia with psychosis, awaiting placement Last updated by Gus Hernandez MD at 07/16/23 16:36 Sign Out Comment: No issues on evening shift. Pending placement due to lack of capacity. Last updated by German Ray MD at 07/16/23 22:42 Discharge Plan Discharge Details Chief Complaint: AMS/LOC Primary Care Provider: Unknown,Unknown ED Provider: Yolanda Cox Home Meds and New Rx's Prescriptions: No Action Xarelto 20 mg tablet 20 mg PO DAILY Rx Instructions: must administer with evening meal metoprolol succinate 50 mg tablet extended release 24 hr 50 mg PO DAILY sertraline 50 mg tablet 50 mg PO DAILY polyethylene glycol 3350 [Miralax] 17 gram/dose powder 17 g PO DAILY PRN memantine 10 mg tablet 10 mg PO BID acetaminophen 325 mg Tablet 650 mg PO Q6H PRN PRNQty: 0 0RF trazodone 50 mg Tablet 50 mg PO HS Qty: 0 0RF olanzapine 5 mg Tablet 5 mg PO BID Qty: 0 0RF amlodipine 5 mg Tablet 5 mg PO DAILY Qty: 0 0RF magnesium hydroxide [Milk of Magnesia] 400 mg/5 mL Suspension 30 ml PO DAILY PRN PRNQty: 0 0RF docusate sodium [Colace] 100 mg Capsule 100 mg PO BID PRN PRN (Reason: Constipation) Qty: 0 0RF melatonin 3 mg capsule 6 mg PO HS PRNQty: 0 0RF
--- NOTE | 2023-07-17 03:44 | NUR.NOTE ---
PT resting in NAD Nursing Note:
[2023-07-17 07:57] VITALS: BP 100/59; PULSE 98; RESP 14; TEMP 36.8; O2SAT 98
[2023-07-17] MEDS: amLODIPine 5 MG TAB PO ×2 (08:23→14:54)
[2023-07-17] MEDS: Memantine 5 MG TAB 10 MG PO ×2 (08:23→14:55)
[2023-07-17] MEDS: Metoprolol CR 50 MG TABCR PO ×2 (08:23→14:55)
[2023-07-17] MEDS: Sertraline 50 MG TAB PO ×2 (08:24→14:55)
[2023-07-17] MEDS: OLANZapine 5 MG TAB PO ×2 (08:24→14:55)
--- NOTE | 2023-07-17 14:57 | NUR.NOTE ---
Nursing Note: Pt provided with daily AM medicaton. Pt appropriate with staff; cooperative, pleasant. Took PO medications without difficulty.
--- NOTE | 2023-07-17 15:08 | ED.PROG_ITS ---
Date of service: 07/17/23 Time of Service: 15:09 Medical Decision Making Patient waiting placement in an appropriate long-term care facility for his dementia with psychotic features. He has been taking his medication as prescribed. He has not demonstrated any aggression. Patient remained stable. Care management noting no receiving facility has been identified as yet. Quality:[facility] Health Related Social Needs: Health related social needs details The patient lives at home alone and does not currently have any heat. Sign Out Sign Out Data: Sign Out Comment: 83yo M with Lewy body dementia with psychosis, hospitalized on swing bed and deemed to lack decision-making capacity; felt to be most appropriate for zone B while awaiting placement. Discharged from [place] and transferred to ED. Awaiting placement. Last updated by Yolanda Cox MD at 07/16/23 06:18 Sign Out Comment: Lewy body dementia with psychosis, awaiting placement Last updated by Gus Hernandez MD at 07/16/23 16:36 Sign Out Comment: No issues on evening shift. Pending placement due to lack of capacity. Last updated by German Ray MD at 07/16/23 22:42 Sign Out Comment: Lewy body dementia, needs placement. No acute events overnight. Last updated by Yolanda Cox MD at 07/17/23 06:21 Discharge Plan Discharge Details Chief Complaint: AMS/LOC Primary Care Provider: Unknown,Unknown ED Provider: Rey Peck Home Meds and New Rx's Prescriptions: No Action Xarelto 20 mg tablet 20 mg PO DAILY Rx Instructions: must administer with evening meal metoprolol succinate 50 mg tablet extended release 24 hr 50 mg PO DAILY sertraline 50 mg tablet 50 mg PO DAILY polyethylene glycol 3350 [Miralax] 17 gram/dose powder 17 g PO DAILY PRN memantine 10 mg tablet 10 mg PO BID acetaminophen 325 mg Tablet 650 mg PO Q6H PRN PRNQty: 0 0RF trazodone 50 mg Tablet 50 mg PO HS Qty: 0 0RF olanzapine 5 mg Tablet 5 mg PO BID Qty: 0 0RF amlodipine 5 mg Tablet 5 mg PO DAILY Qty: 0 0RF magnesium hydroxide [Milk of Magnesia] 400 mg/5 mL Suspension 30 ml PO DAILY PRN PRNQty: 0 0RF docusate sodium [Colace] 100 mg Capsule 100 mg PO BID PRN PRN (Reason: Constipation) Qty: 0 0RF melatonin 3 mg capsule 6 mg PO HS PRNQty: 0 0RF
[2023-07-17] MEDS: Rivaroxaban 10 MG TABLET 20 MG PO (16:42)
--- NOTE | 2023-07-17 23:44 | ED.PROG_ITS ---
Date of service: 07/17/23 Time of Service: 23:44 Medical Decision Making Quality:[facility] Health Related Social Needs: Health related social needs details The patient lives at home alone and does not currently have any heat. Narrative 11:44 PM I have received signout. 07/18/2023 2:13 AM I have seen the patient who is currently sleeping. His nurse told me he was very reluctant to take his nighttime meds and thinks he would benefit from changing his medicines from 8 AM, 5 PM, 8 PM, and 10 PM to 8 AM and 8 PM. She believes this will improve his compliance and I agree. She will evaluate a verbal order and I will cosign at. He is still awaiting geriatric psychiatric placement. Sign Out Sign Out Data: Sign Out Comment: 83yo M with Lewy body dementia with psychosis, hospitalized on swing bed and deemed to lack decision-making capacity; felt to be most appropriate for zone B while awaiting placement. Discharged from [place] and transferred to ED. Awaiting placement. Last updated by Yolanda Cox MD at 07/16/23 06:18 Sign Out Comment: Lewy body dementia with psychosis, awaiting placement Last updated by Gus Hernandez MD at 07/16/23 16:36 Sign Out Comment: No issues on evening shift. Pending placement due to lack of capacity. Last updated by German Ray MD at 07/16/23 22:42 Sign Out Comment: Lewy body dementia, needs placement. No acute events overnight. Last updated by Yolanda Cox MD at 07/17/23 06:21 Sign Out Comment: Patient cooperative and taking medications as prescribed today. Care management notes no long-term placement yet identified. Last updated by Rey Peck MD at 07/17/23 16:01 Sign Out Comment: lewy body dementia, awaiting placement Last updated by Gus Hernandez MD at 07/17/23 23:39 Sign Out Comment: Lewy Body dementia awaiting geripsych admission. No issues overnight. Last updated by Monserrat Shah MD at 07/18/23 07:10 Discharge Plan Disposition Patient Disposition: Admit to [facility] Condition: Serious Discharge Details Clinical Impression: Dementia with Lewy bodies, Psychosis Primary Care Provider: Unknown,Unknown ED Provider: Rey Peck Home Meds and New Rx's Prescriptions: No Action Xarelto 20 mg tablet 20 mg PO DAILY Rx Instructions: must administer with evening meal metoprolol succinate 50 mg tablet extended release 24 hr 50 mg PO DAILY sertraline 50 mg tablet 50 mg PO DAILY polyethylene glycol 3350 [Miralax] 17 gram/dose powder 17 g PO DAILY PRN memantine 10 mg tablet 10 mg PO BID acetaminophen 325 mg Tablet 650 mg PO Q6H PRN PRNQty: 0 0RF trazodone 50 mg Tablet 50 mg PO HS Qty: 0 0RF olanzapine 5 mg Tablet 5 mg PO BID Qty: 0 0RF amlodipine 5 mg Tablet 5 mg PO DAILY Qty: 0 0RF magnesium hydroxide [Milk of Magnesia] 400 mg/5 mL Suspension 30 ml PO DAILY PRN PRNQty: 0 0RF docusate sodium [Colace] 100 mg Capsule 100 mg PO BID PRN PRN (Reason: Constipation) Qty: 0 0RF melatonin 3 mg capsule 6 mg PO HS PRNQty: 0 0RF
[2023-07-18] MEDS: traZODone 50 MG TAB PO ×2 (00:47→20:53)
[2023-07-18] MEDS: Melatonin 3 MG TAB 6 MG PO ×2 (00:47→20:52)
--- NOTE | 2023-07-18 01:20 | NUR.NOTE ---
Nursing Note: Medications in MAR ordered as BID and scheduled for 08:00 and 20:00 shown as given by ML ~08:23 and ~14:55. Unable to verify with nurse ML if these medications were given or charted in error.
[2023-07-18 07:26] VITALS: BP 101/65; PULSE 63; RESP 16; TEMP 36.4; O2SAT 98
[2023-07-18] MEDS: Metoprolol CR 50 MG TABCR PO (08:14)
[2023-07-18] MEDS: amLODIPine 5 MG TAB PO (08:14)
[2023-07-18] MEDS: OLANZapine 5 MG TAB PO ×2 (08:14→20:52)
[2023-07-18] MEDS: Sertraline 50 MG TAB PO (08:15)
[2023-07-18] MEDS: Memantine 5 MG TAB 10 MG PO ×2 (08:15→20:52)
--- NOTE | 2023-07-18 08:19 | NUR.NOTE ---
Nursing Note: Pt sitting on bed after eating breakfast. Polite, pleasant, interactive with staff. Took all AM medications as prescribed.
--- NOTE | 2023-07-18 15:55 | W.EDPROG ---
Date of service: 07/18/23 Time of Service: 15:55 Medical Decision Making Care was signed out by Dr. Shah. Please see her documentation regarding earlier course today and prior documentation regarding ED course since arrival. Patient has taken his meds today's ED for patient has been cooperative today. Taking his medication as prescribed. Care management meeting was held and it was determined that patient should be admitted to the hospitalist service for swing bed status. Patient will continue be held here in zone B as the safest location for him in the hospital. I spoke with Dr. Padilla, discussed ED presentation and course, he will admit the patient. Quality:[facility] Health Related Social Needs: Health related social needs details The patient lives at home alone and does not currently have any heat. Sign Out Sign Out Data: Sign Out Comment: 83yo M with Lewy body dementia with psychosis, hospitalized on swing bed and deemed to lack decision-making capacity; felt to be most appropriate for [facility] B while awaiting placement. Discharged from [place] and transferred to ED. Awaiting placement. Last updated by Yolanda Cox MD at 07/16/23 06:18 Sign Out Comment: Lewy body dementia with psychosis, awaiting placement Last updated by Gus Hernandez MD at 07/16/23 16:36 Sign Out Comment: No issues on evening shift. Pending placement due to lack of capacity. Last updated by German Ray MD at 07/16/23 22:42 Sign Out Comment: Lewy body dementia, needs placement. No acute events overnight. Last updated by Yolanda Cox MD at 07/17/23 06:21 Sign Out Comment: Patient cooperative and taking medications as prescribed today. Care management notes no long-term placement yet identified. Last updated by Rey Peck MD at 07/17/23 16:01 Sign Out Comment: lewy body dementia, awaiting placement Last updated by Gus Hernandez MD at 07/17/23 23:39 Sign Out Comment: Lewy Body dementia awaiting geripsych admission. No issues overnight. Last updated by Monserrat Shah MD at 07/18/23 07:10 Discharge Plan Disposition Patient Disposition: Admit to [facility] Condition: Serious Discharge Details Clinical Impression: Dementia with Lewy bodies, Psychosis Primary Care Provider: Unknown,Unknown ED Provider: Rey Peck Home Meds and New Rx's Prescriptions: No Action Xarelto 20 mg tablet 20 mg PO DAILY Rx Instructions: must administer with evening meal metoprolol succinate 50 mg tablet extended release 24 hr 50 mg PO DAILY sertraline 50 mg tablet 50 mg PO DAILY polyethylene glycol 3350 [Miralax] 17 gram/dose powder 17 g PO DAILY PRN memantine 10 mg tablet 10 mg PO BID acetaminophen 325 mg Tablet 650 mg PO Q6H PRN PRNQty: 0 0RF trazodone 50 mg Tablet 50 mg PO HS Qty: 0 0RF olanzapine 5 mg Tablet 5 mg PO BID Qty: 0 0RF amlodipine 5 mg Tablet 5 mg PO DAILY Qty: 0 0RF magnesium hydroxide [Milk of Magnesia] 400 mg/5 mL Suspension 30 ml PO DAILY PRN PRNQty: 0 0RF docusate sodium [Colace] 100 mg Capsule 100 mg PO BID PRN PRN (Reason: Constipation) Qty: 0 0RF melatonin 3 mg capsule 6 mg PO HS PRNQty: 0 0RF
--- NOTE | 2023-07-18 16:52 | W.PM.HP.N ---
Date of service: 07/18/23 Time of Service: 16:52 Assessment and Plan Assessment and plan (1) Dementia with behavioral disturbance: Status: Acute Assessment and plan: Continue antipsychotics at low dose as per psych consult: Olanzapine, monitor CBC Continue Memantine, sertraline (2) Psychosis: Status: Acute Assessment and plan: As above, no hallucinations (3) Essential hypertension: Status: Acute Assessment and plan: Continue home meds (4) Encounter for assessment of healthcare decision-making capacity: Status: Acute Assessment and plan: Psychiatric consultation done on 07/14:at this time did not have capacity to make medical decisions. (5) Psychiatric disorder: Status: Acute (6) History of atrial fibrillation: Status: Acute Assessment and plan: continue metoprolol and rivaroxaban (7) Hypertension: Status: Chronic Assessment and plan: Continue amlodipine (8) Discharge planning issues: Status: Acute Assessment and plan: Awaiting placement f/u by [facility] Discussed with Dr. Padilla History of Present Illness History of Present Illness Chief Complaint: Altered mental status, suicidal ideation and violent behavior Narrative: This 83 years old male patient with past medical history of psychiatric disorder Lewy body dementia with behavioral disturbance, suicidal ideation with [facility]-psych hospitalization from 07/01/2023 to 07/09/2023 when he returned to [facility], presented to the emergency room at [facility] on 07/10/2023 for evaluation of suicidal ideation, violent and behavior. At the time he was hospitalized on the medical surgical floor until 07/15/23 when he was discharged. Upon discharge the patient was deemed not safe to go home and remained in the emergency room awaiting psychiatric placement. Today the patient was accepted under the hospitalist service as he will remain as a swing bed level two in the emergency department. Patient denies headache, dizziness, hallucinations, shortness of breath, chest pain, abdominal pain, nausea, vomiting, dysuria or hematuria. Patient reports eating well, sleeping well, having a bowel movement 2 days ago, and feeling fine. Patient stating that he wants to be revived and maintain alive. Patient is a full code Review of Systems Constitutional Constitutional: Reports as per HPI and Reports system reviewed and no additional complaints, except as documented Eyes Eyes: Reports as per HPI and Reports system reviewed and no additional complaints, except as documented ENT Ears, Nose, Mouth, and Throat: Reports system reviewed and no additional complaints, except as documented and Reports as per HPI Cardiovascular Cardiovascular: Reports as per HPI and Reports system reviewed and no additional complaints, except as documented Respiratory Respiratory: Reports as per HPI and Reports system reviewed and no additional complaints, except as documented Gastrointestinal Gastrointestinal: Reports as per HPI and Reports system reviewed and no additional complaints, except as documented Genitourinary Genitourinary: Reports system reviewed and no additional complaints, except as documented and Reports as per HPI Musculoskeletal Musculoskeletal: Reports system reviewed and no additional complaints, except as documented and Reports as per HPI Integumentary/Breasts Skin/Breast: Reports system reviewed and no additional complaints, except as documented and Reports as per HPI Neurologic Neurologic: Reports system reviewed and no additional complaints, except as documented and Reports as per HPI Psychiatric Psychiatric: Reports system reviewed and no additional complaints, except as documented and Reports as per HPI Endocrine Endocrine: Reports system reviewed and no additional complaints, except as documented and Reports as per HPI Hematologic/Lymphatic Hematologic/Lymphatic: Reports system reviewed and no additional complaints, except as documented and Reports as per HPI [facility] All Active Problems (Updated 07/18/23 @ 17:50 by Kaitlynn Patel APRN) Discharge planning issues (Acute) Hypertension (Chronic) History of atrial fibrillation (Acute) Psychosis (Acute) Dementia with Lewy bodies (Acute) Lewy body dementia with behavioral disturbance (Acute) Patient incapable of making informed decisions (Acute) Encounter for assessment of healthcare decision-making capacity (Acute) Essential hypertension (Acute) Psychosis (Acute) Dementia with behavioral disturbance (Acute) Psychiatric disorder (Acute) Suicide attempt (Acute) Aggressive behavior (Acute) Social History Smoking risk assessment performed?: No Details: Information not obtained by prior shift. Meds Allergies and Home Medications Allergies Allergy/AdvReac Type Severity Reaction Status Date / Time statins Allergy Intermediate Other (See Uncoded 07/15/23 21:59 Comment) Home Medications Medication Instructions Recorded Confirmed Type metoprolol succinate 50 mg 50 mg PO DAILY 06/28/23 07/15/23 History tablet,extended release 24 hr polyethylene glycol 3350 17 17 g PO DAILY PRN 06/28/23 07/15/23 History gram/dose oral powder (Miralax) rivaroxaban 20 mg tablet (Xarelto) 20 mg PO DAILY 06/28/23 07/15/23 History sertraline 50 mg tablet 50 mg PO DAILY 06/28/23 07/15/23 History memantine 10 mg tablet 10 mg PO BID 07/09/23 07/15/23 History acetaminophen 325 mg tablet 650 mg (2 x 325 mg) PO Q6H PRN PRN 07/15/23 07/15/23 Rx #0 tabs amlodipine 5 mg tablet 5 mg PO DAILY #0 tabs 07/15/23 07/15/23 Rx docusate sodium 100 mg capsule 100 mg PO BID PRN PRN Constipation 07/15/23 07/15/23 Rx (Colace) #0 caps magnesium hydroxide 400 mg/5 mL 30 ml PO DAILY PRN PRN ##0 07/15/23 07/15/23 Rx oral suspension (Milk of Magnesia) melatonin 3 mg capsule 6 mg (2 x 3 mg) PO HS PRN #0 caps 07/15/23 07/15/23 Rx olanzapine 5 mg tablet 5 mg PO BID #0 tabs 07/15/23 07/15/23 Rx trazodone 50 mg tablet 50 mg PO HS #0 tabs 07/15/23 07/15/23 Rx Exam Narrative Exam Narrative: Constitutional The patient is in bed comfortable had difficulty focusing during the interview, is w/o acute distress. HENMT: Head is atraumatic, normocephalic, no lymphadenopathy. Facial structures with normal appearance Eyes: Well aligned, Neck: Normal ROM, no JVD, no meningeal signs Neuro:alert and oriented to self, person, place. No neurological focal deficit Resp: Clear lungs Cardio: irregular rhythm, S1, S2, no murmur, pulses positive to all 4 extremities GI: Abdomen is not distended, soft and non tender, bowel sounds are present : Negative Costovertebral angle tenderness, no bladder distension Back/spine/Pelvis: No back tenderness, normal alignment Integumentary: No skin lesions or rash Extremities: strength 5/5 to bilateral lower and upper extremities Psych: RASS 0, easily irritable during interview Results Last Vital Signs Temp 36.4 C L 07/18/23 07:26 Pulse 63 07/18/23 07:26 Resp 16 07/18/23 07:26 BP 101/65 07/18/23 07:26 Pulse Ox 98 07/18/23 07:26 Time Spent Time spent with Patient: >75 minutes Time was spent: preparing to see the patient(eg.review tests), obtaining and/or reviewing separately otained hiistory, ordering medications,tests, procedures, referring, communicating with other health progressive care unit registered nurse, indepentently interpreting results, counseling the patient and care coordination
[2023-07-18] MEDS: Rivaroxaban 10 MG TABLET 20 MG PO (20:52)
--- NOTE | 2023-07-18 21:48 | NUR.NOTE ---
Nursing Note: Patient laying in bed after taking all evening medications. Patient was calm, polite, and interactive with staff. PSO on unit.
[2023-07-19 06:48] VITALS: BP 113/71; PULSE 90; RESP 14; TEMP 36.8; O2SAT 98
[2023-07-19] MEDS: OLANZapine 5 MG TAB PO ×2 (08:47→22:14)
[2023-07-19] MEDS: amLODIPine 5 MG TAB PO (08:47)
[2023-07-19] MEDS: Metoprolol CR 50 MG TABCR PO (08:48)
[2023-07-19] MEDS: Memantine 5 MG TAB 10 MG PO ×2 (08:49→22:14)
[2023-07-19] MEDS: Sertraline 50 MG TAB PO (08:51)
--- NOTE | 2023-07-19 10:53 | NUR.NOTE ---
Nursing Note: Patient's sister, Britney Roldan called to speak with patient. She was concerned that he would not be able to talk on the phone as he doesnt have his hearing aids. We attempted and patient was able to hear and speak without difficulty with her. 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
[2023-07-19] MEDS: Rivaroxaban 10 MG TABLET 20 MG PO (22:14)
[2023-07-19] MEDS: traZODone 50 MG TAB PO (22:14)
[2023-07-19] MEDS: Melatonin 3 MG TAB 6 MG PO (22:14)
[2023-07-20 07:23] VITALS: BP 117/68; PULSE 84; RESP 14; TEMP 36.8; O2SAT 98
[2023-07-20] MEDS: OLANZapine 5 MG TAB PO ×2 (07:47→19:21)
[2023-07-20] MEDS: Sertraline 50 MG TAB PO (07:47)
[2023-07-20] MEDS: Metoprolol CR 50 MG TABCR PO (07:47)
[2023-07-20] MEDS: Memantine 5 MG TAB 10 MG PO ×2 (07:47→19:21)
[2023-07-20] MEDS: amLODIPine 5 MG TAB PO (07:48)
[2023-07-20] MEDS: Rivaroxaban 10 MG TABLET 20 MG PO (19:21)
[2023-07-20] MEDS: traZODone 50 MG TAB PO (19:21)
[2023-07-20] MEDS: Melatonin 3 MG TAB 6 MG PO (19:21)
[2023-07-21 07:31] VITALS: BP 109/70; PULSE 93; RESP 18; TEMP 36.7; O2SAT 98
[2023-07-21] MEDS: amLODIPine 5 MG TAB PO (07:55)
[2023-07-21] MEDS: Memantine 5 MG TAB 10 MG PO ×2 (07:56→20:35)
[2023-07-21] MEDS: Metoprolol CR 50 MG TABCR PO (07:57)
[2023-07-21] MEDS: OLANZapine 5 MG TAB PO ×2 (07:57→20:35)
[2023-07-21] MEDS: Sertraline 50 MG TAB PO (07:57)
--- NOTE | 2023-07-21 16:18 | CM.SBPSYCH ---
Date of service: 07/18/23 Time of Service: 16:18 SB Psychosocial/Act. [facility] Admission Admission Date: 07/18/23 Admission From:: ED Boarding, Med/Surg SWB2 Diagnosis:: Lewy Body Dementia with behavioral disturbance Swing Bed Admission Swing Bed Admit Date:: 07/09/23 Swing Bed Level of Care: Level 2/ICF Social Supports PREVIOUS FUNCTIONAL STATUS/SOCIAL/FAMILY SUPPORTS:: Jorge Luis lives alone in a single family home in [place]. He has 2 daughters, Christy and Victoria who is his DPOA and HCA. He is independent with ADLs however he does currently have psychiatric issues that may impede his ability to acre for himself. Prior to Admission Living Arrangements/Environment Prior to Admission:: Resided in his own home, until unable to manage as related to behaviors; presented to [facility] ED on 06/28/23, transferred to [facility] facility, returned to [facility] for fci care and lack of disposition 07/09/23. Jorge Luis struggled on inpatient floor to remain in room, environmental stressors and wanting to leave. He transitioned down to Zone B (low stimulation in the ED) with notable improvement in functioning and presentation. Advance Directives for Healthcare Advance Directives for Healthcare: Durable Power of Seat Builder for Healthcare Advance Directive Agent: Document from 2019 stating that daughter Victoria is his general DURABLE POWER OF ELECTROPHONIC ENGINEER. Present Functional Status Cognitive:: Several visits with [facility] neurology. They recommended LP and brain MRI. MRI done 04/19/2022 did not show any strokes but did show temporal lobe atrophy with concern for vascular insult . The biomarkers were positive for Alzheimer's disease (no specifics in note). 07/09/2022 geriatric psychiatry note: Follow-up to review test results as discussed in previous sentence. They wanted to taper him off his atypical antipsychotics at that time. At the time of that note (a year ago) they felt psychosis was well-controlled by report. He has some delusional content but has intact insight into this not being accurate reflection of reality . They do not specifically say what they think is going on with the patient, some sort of dementia or cognitive impairment. Communication:: He seems to be fairly stable and able to function well in a supervised environment when he is given his medications on a regular basis. Unfortunately once he was living on his own, stopped taking his medication. Behavior:: Patient is an 83-year-old gentleman with various diagnosis of psychosis, possible Lewy body dementia, Alzheimer's dementia with behavioral disturbance who had been living in supervised settings (SNF, assisted living) until about 6 weeks ago when he was deemed stable enough to return to his home. Appears that he likely stopped taking his psychiatric medications. He had recurrence of psychosis and exhibited unsafe behavior including turning on his propane line into his house and going outside without adequate clothing on, exhibited aggressive behavior towards family and others. Medical History General Health:: Decreased hearing: Patient refusing to use hearing aids that are in his room, says they are not his (may well not be). I used a pocket talker today and he said the sound was quite acceptable and would like to keep it in his room while he is here. I left a pocket talker in his room. I recommend that pocket Talker be used during conversations if he is agreeable. This should aid in orientation as well. Past Psychiatric Treatment:: Initial geriatric psychiatry (Dr. Deonte Ramirez) consult January 2022. Reported onset of first break July 2021. Paranoid ideation Danielle? Discharged from [facility], to the [facility] in [place] (assisted living?). Just prior to this daughter first noted some memory problems and first episodes of confusion. Reported hearing some voices. His goal was to become independent enough to leave assisted living and return home. It sounds like he was able to do that in May of 2023. -Current compensation vice president at [facility] who is going to be following him (if he continues to go there) is Dr. Letitia Sorensen [facility] psychiatry and [facility] geriatric psychiatry feel that he has some form of dementia. Recommend consultation with [facility] neurology to assist with management as well. Note that [place]'s psychiatry recommended keeping doses of atypical antipsychotics low, as they note this can exacerbate behavior in the setting of Lewy body dementia. Other:: Regarding capacity, he appears to have capacity to make simple decisions at this time. He is able to explain that he should not go outside without being adequately dressed and protected when his very cold outside. Yet he continues to express paranoid delusions, lacks any insight into his dementia or psychosis (not unusual). This would affect his decision making (including taking his medications regularly) if he was in an unsupervised setting. Admission Data Reason for Swing Bed Admission:: No safe disposition. Discharge Plan:: Home with increased [id number] term placement or AFC home Assessment: Retirement care, disposition coordination needs. Log Yard Derrick Operator: Jayla Bonilla Date Assessment was completed:: 07/21/23
--- NOTE | 2023-07-21 16:31 | CM.SWINGPC ---
Date of service: 07/09/23 Time of Service: 16:31 Swingbed Plan of Care Activites/Discharge Plan of care: SWING BED PROGRAM ACTIVITIES/DISCHARGE PLAN OF CARE ACTIVITIES PLAN Date: 07/09/23 Identified Need: Life enrichment during extended hospitalization Intervention/Plan: Staff will continue to offer activity cart and items of interest for Jorge Luis. Initials: MINDY DISCHARGE PLAN Date: 07/09/23 Identified Need: Disposition Coordination Intervention/Plan: Support daughter in coordinating local company intermodal truck driver placement. Initials: MINDY
[2023-07-21] MEDS: Melatonin 3 MG TAB 6 MG PO (20:34)
[2023-07-21] MEDS: traZODone 50 MG TAB PO (20:35)
[2023-07-21] MEDS: Rivaroxaban 10 MG TABLET 20 MG PO (20:35)
[2023-07-22 05:22] VITALS: BP 117/62; PULSE 76; RESP 14; TEMP 36.8; O2SAT 98
[2023-07-22] MEDS: OLANZapine 5 MG TAB PO ×2 (07:42→23:24)
[2023-07-22] MEDS: Metoprolol CR 50 MG TABCR PO (07:42)
[2023-07-22] MEDS: Sertraline 50 MG TAB PO (07:42)
[2023-07-22] MEDS: amLODIPine 5 MG TAB PO (07:43)
[2023-07-22] MEDS: Memantine 5 MG TAB 10 MG PO ×2 (07:43→23:24)
[2023-07-22] MEDS: Rivaroxaban 10 MG TABLET 20 MG PO (23:24)
[2023-07-22] MEDS: Melatonin 3 MG TAB 6 MG PO (23:24)
[2023-07-22] MEDS: traZODone 50 MG TAB PO (23:24)
[2023-07-23 07:11] VITALS: BP 112/74; PULSE 67; RESP 14; TEMP 36.7; O2SAT 99
[2023-07-23] MEDS: Sertraline 50 MG TAB PO (08:05)
[2023-07-23] MEDS: amLODIPine 5 MG TAB PO (08:05)
[2023-07-23] MEDS: OLANZapine 5 MG TAB PO ×2 (08:05→20:12)
[2023-07-23] MEDS: Memantine 5 MG TAB 10 MG PO ×2 (08:05→20:12)
[2023-07-23] MEDS: Metoprolol CR 50 MG TABCR PO (08:05)
--- NOTE | 2023-07-23 17:42 | CM.SBPSYCH ---
Date of service: 07/16/23 Time of Service: 11:00 SB Psychosocial/Act. Assmt Hospital Admission Admission Date: 07/10/23 Admission From:: [facility] in [place], [place] Diagnosis:: AMS/Lewy Body dementia Swing Bed Admission Swing Bed Admit Date:: 07/15/23 Swing Bed Level of Care: Level 2/ICF Social Supports PREVIOUS FUNCTIONAL STATUS/SOCIAL/FAMILY SUPPORTS:: Jorge Luis lives alone in a single family home in [facility]. He has 2 daughters, Christy and Victoria who is his DPOA and HCA. He is independent with ADLs however he does currently have psychiatric issues that may impede his ability to acre for himself. Advance Directives for Healthcare Advance Directives for Healthcare: Advance Directives Advance Directive Agent: Daughter Victoria Miller Present Functional Status Physical Abilities:: good at baseline Cognitive:: has some dementia Communication:: good verbal skills Sensory Systems: needs hearing aides Behavior:: has been cooperative and pleasant Medical History Past Psychiatric Treatment:: psychiatric hospitalizations in past couple of years, none before Admission Data Reason for Swing Bed Admission:: unable to find safe disposition Discharge Plan:: Working on placement in assisted living or SNF [employer] Worker: Felisa Vallecillo Date Assessment was completed:: 07/15/23
[2023-07-23] MEDS: Melatonin 3 MG TAB 6 MG PO (20:11)
[2023-07-23] MEDS: Rivaroxaban 10 MG TABLET 20 MG PO (20:12)
[2023-07-23] MEDS: traZODone 50 MG TAB PO (20:12)
--- NOTE | 2023-07-24 06:18 | NUR.NOTE ---
Pt is currently having breakfast in the social area. Pt seems pleasant and appeared happy for breakfast.
[2023-07-24 06:51] VITALS: BP 102/55; PULSE 87; RESP 16; TEMP 36.8; O2SAT 99
--- NOTE | 2023-07-24 08:00 | NUR.NOTE ---
patient relaxing on bed in ZB room 4. patient ate breakfast and cleaned up in bathroom. lunch ideas considered. Nursing Note:
[2023-07-24] MEDS: Metoprolol CR 50 MG TABCR PO (08:47)
[2023-07-24] MEDS: amLODIPine 5 MG TAB PO (08:47)
[2023-07-24] MEDS: Sertraline 50 MG TAB PO (08:47)
[2023-07-24] MEDS: Memantine 5 MG TAB 10 MG PO ×2 (08:47→20:15)
[2023-07-24] MEDS: OLANZapine 5 MG TAB PO ×2 (08:47→20:15)
[2023-07-24] MEDS: Melatonin 3 MG TAB 6 MG PO (20:15)
[2023-07-24] MEDS: Rivaroxaban 10 MG TABLET 20 MG PO (20:15)
[2023-07-24] MEDS: traZODone 50 MG TAB PO (20:15)
[2023-07-25 06:43] VITALS: BP 100/65; PULSE 70; RESP 16; TEMP 36.6; O2SAT 98
[2023-07-25] MEDS: OLANZapine 5 MG TAB PO ×2 (07:15→19:47)
[2023-07-25] MEDS: Sertraline 50 MG TAB PO (07:15)
[2023-07-25] MEDS: Memantine 5 MG TAB 10 MG PO ×2 (07:15→19:48)
[2023-07-25] MEDS: Metoprolol CR 50 MG TABCR PO (07:15)
[2023-07-25] MEDS: amLODIPine 5 MG TAB PO (07:15)
[2023-07-25] MEDS: Rivaroxaban 10 MG TABLET 20 MG PO (19:48)
[2023-07-25] MEDS: traZODone 50 MG TAB PO (19:48)
[2023-07-25] MEDS: Melatonin 3 MG TAB 6 MG PO (19:48)
[2023-07-26 06:02] VITALS: BP 127/80; PULSE 64; RESP 16; TEMP 36.6; O2SAT 98
[2023-07-26] MEDS: OLANZapine 5 MG TAB PO ×2 (12:07→20:05)
[2023-07-26] MEDS: Sertraline 50 MG TAB PO (12:07)
[2023-07-26] MEDS: amLODIPine 5 MG TAB PO (12:07)
[2023-07-26] MEDS: Metoprolol CR 50 MG TABCR PO (12:08)
[2023-07-26] MEDS: Memantine 5 MG TAB 10 MG PO ×2 (12:09→20:05)
[2023-07-26] MEDS: Melatonin 3 MG TAB 6 MG PO (20:04)
[2023-07-26] MEDS: traZODone 50 MG TAB PO (20:05)
[2023-07-26] MEDS: Rivaroxaban 10 MG TABLET 20 MG PO (20:05)
[2023-07-27 07:47] VITALS: BP 122/74; PULSE 63; RESP 16; TEMP 36.8; O2SAT 99
[2023-07-27] MEDS: Memantine 5 MG TAB 10 MG PO ×2 (08:07→20:25)
[2023-07-27] MEDS: OLANZapine 5 MG TAB PO ×2 (08:08→20:25)
[2023-07-27] MEDS: Metoprolol CR 50 MG TABCR PO (08:09)
[2023-07-27] MEDS: amLODIPine 5 MG TAB PO (08:09)
[2023-07-27] MEDS: Sertraline 50 MG TAB PO (08:10)
[2023-07-27] MEDS: Melatonin 3 MG TAB 6 MG PO (20:25)
[2023-07-27] MEDS: traZODone 50 MG TAB PO (20:25)
[2023-07-27] MEDS: Rivaroxaban 10 MG TABLET 20 MG PO (20:25)
[2023-07-28 06:11] VITALS: BP 134/71; PULSE 58; RESP 14; TEMP 36.8; O2SAT 98
[2023-07-28] MEDS: amLODIPine 5 MG TAB PO (08:37)
[2023-07-28] MEDS: Sertraline 50 MG TAB PO (08:37)
[2023-07-28] MEDS: Metoprolol CR 50 MG TABCR PO (08:37)
[2023-07-28] MEDS: Memantine 5 MG TAB 10 MG PO (08:37)
[2023-07-28] MEDS: OLANZapine 5 MG TAB PO (08:37)
[2023-07-29] MEDS: OLANZapine 5 MG TAB PO ×3 (00:03→22:16)
[2023-07-29] MEDS: Melatonin 3 MG TAB 6 MG PO ×2 (00:03→22:16)
[2023-07-29] MEDS: Memantine 5 MG TAB 10 MG PO ×3 (00:03→22:16)
[2023-07-29] MEDS: Rivaroxaban 10 MG TABLET 20 MG PO ×2 (00:04→22:16)
[2023-07-29] MEDS: traZODone 50 MG TAB PO ×2 (00:04→22:16)
[2023-07-29 05:25] VITALS: BP 136/79; PULSE 53; RESP 14; TEMP 36.4; O2SAT 99
[2023-07-29] MEDS: Sertraline 50 MG TAB PO (10:26)
[2023-07-29] MEDS: Metoprolol CR 50 MG TABCR PO (10:26)
[2023-07-29] MEDS: amLODIPine 5 MG TAB PO (10:26)
[2023-07-30 07:34] VITALS: BP 114/69; PULSE 62; RESP 16; TEMP 36.5; O2SAT 99
[2023-07-30] MEDS: amLODIPine 5 MG TAB PO (08:26)
[2023-07-30] MEDS: OLANZapine 5 MG TAB PO ×2 (08:27→20:30)
[2023-07-30] MEDS: Metoprolol CR 50 MG TABCR PO (08:27)
[2023-07-30] MEDS: Memantine 5 MG TAB 10 MG PO ×2 (08:27→20:30)
[2023-07-30] MEDS: Sertraline 50 MG TAB PO (08:28)
[2023-07-30 16:28] VITALS: BP 156/60; PULSE 47; RESP 16; TEMP 36.3; O2SAT 100
[2023-07-30] MEDS: Rivaroxaban 10 MG TABLET 20 MG PO (20:30)
[2023-07-30] MEDS: traZODone 50 MG TAB PO (20:30)
[2023-07-30] MEDS: Melatonin 3 MG TAB 6 MG PO (20:30)
[2023-07-31] MEDS: Metoprolol CR 50 MG TABCR PO (07:24)
[2023-07-31] MEDS: Memantine 5 MG TAB 10 MG PO ×2 (07:24→20:11)
[2023-07-31] MEDS: Sertraline 50 MG TAB PO (07:25)
[2023-07-31] MEDS: amLODIPine 5 MG TAB PO (07:25)
[2023-07-31] MEDS: OLANZapine 5 MG TAB PO ×2 (07:25→20:12)
[2023-07-31 15:22] VITALS: BP 96/58; PULSE 49; RESP 16; TEMP 36.3; O2SAT 99
[2023-07-31] MEDS: Melatonin 3 MG TAB 6 MG PO (20:11)
[2023-07-31] MEDS: Rivaroxaban 10 MG TABLET 20 MG PO (20:12)
[2023-07-31] MEDS: traZODone 50 MG TAB PO (20:13)
[2023-07-31 20:21] VITALS: BP 110/64; PULSE 69; RESP 18; TEMP 36.8; O2SAT 98
[2023-08-01 08:08] VITALS: BP 114/70; PULSE 64; RESP 18; TEMP 36.2; O2SAT 99
[2023-08-01] MEDS: Sertraline 50 MG TAB PO (08:33)
[2023-08-01] MEDS: Metoprolol CR 50 MG TABCR PO (08:33)
[2023-08-01] MEDS: amLODIPine 5 MG TAB PO (08:33)
[2023-08-01] MEDS: OLANZapine 5 MG TAB PO ×2 (08:33→19:56)
[2023-08-01] MEDS: Memantine 5 MG TAB 10 MG PO ×2 (08:33→19:56)
--- NOTE | 2023-08-01 15:58 | PDOC.CMACT ---
Date of service: 08/01/23 Time of Service: 15:58 Care Management Activity Note Activity Note Text Activity Note Text: Jorge Luis remains in Zone B in the Emergency Department, a low simulation setting. Since his transition to the Zone B area, Jorge Luis has improved in presentation, he is consistently calm and friendly in interaction, per reports. JOSE MANUEL Roberto facilitated a discharge planning meeting yesterday with leadership, options continue to be considered including live in home care, AFC homes, and returning to his previous assisted living setting-unfortunately there is not currently a bed available. Jorge Luis enjoys watching TV, interacting with staff and looking out the window at all happening outside the hospital. CM continues to follow and support discharge planning considerations.
[2023-08-01] MEDS: Melatonin 3 MG TAB 6 MG PO (19:56)
[2023-08-01] MEDS: Rivaroxaban 10 MG TABLET 20 MG PO (19:57)
[2023-08-01] MEDS: traZODone 50 MG TAB PO (19:57)
[2023-08-02 06:59] VITALS: BP 123/73; PULSE 52; RESP 16; TEMP 36.5; O2SAT 99
[2023-08-02 07:40] VITALS: PULSE 50
[2023-08-02] MEDS: Memantine 5 MG TAB 10 MG PO ×2 (07:45→20:37)
[2023-08-02] MEDS: OLANZapine 5 MG TAB PO ×2 (07:46→20:37)
[2023-08-02] MEDS: amLODIPine 5 MG TAB PO (07:46)
[2023-08-02] MEDS: Sertraline 50 MG TAB PO (07:46)
[2023-08-02] MEDS: Rivaroxaban 10 MG TABLET 20 MG PO (20:37)
[2023-08-02] MEDS: Melatonin 3 MG TAB 6 MG PO (20:37)
[2023-08-02] MEDS: traZODone 50 MG TAB PO (20:38)
[2023-08-03] MEDS: Metoprolol CR 50 MG TABCR PO (09:08)
[2023-08-03] MEDS: Memantine 5 MG TAB 10 MG PO ×2 (09:08→20:58)
[2023-08-03] MEDS: amLODIPine 5 MG TAB PO (09:08)
[2023-08-03] MEDS: OLANZapine 5 MG TAB PO ×2 (09:08→20:58)
[2023-08-03] MEDS: Sertraline 50 MG TAB PO (09:09)
[2023-08-03] MEDS: Melatonin 3 MG TAB 6 MG PO (20:57)
[2023-08-03] MEDS: Rivaroxaban 10 MG TABLET 20 MG PO (20:58)
[2023-08-03] MEDS: traZODone 50 MG TAB PO (20:58)
[2023-08-04] MEDS: OLANZapine 5 MG TAB PO ×2 (09:17→20:22)
[2023-08-04] MEDS: Sertraline 50 MG TAB PO (09:17)
[2023-08-04] MEDS: Memantine 5 MG TAB 10 MG PO ×2 (09:17→20:23)
[2023-08-04] MEDS: Metoprolol CR 50 MG TABCR PO (09:17)
[2023-08-04] MEDS: amLODIPine 5 MG TAB PO (09:18)
[2023-08-04 09:23] VITALS: BP 107/53; PULSE 60; TEMP 36.4; O2SAT 96
[2023-08-04] MEDS: Melatonin 3 MG TAB 6 MG PO (20:21)
[2023-08-04] MEDS: Rivaroxaban 10 MG TABLET 20 MG PO (20:22)
[2023-08-04] MEDS: traZODone 50 MG TAB PO (20:23)
[2023-08-04 20:28] VITALS: BP 119/76; PULSE 76; RESP 18; O2SAT 98
[2023-08-05 08:19] VITALS: BP 132/70; PULSE 50; RESP 16; TEMP 36.5; O2SAT 99
[2023-08-05] MEDS: amLODIPine 5 MG TAB PO (08:21)
[2023-08-05] MEDS: Sertraline 50 MG TAB PO (08:21)
[2023-08-05] MEDS: OLANZapine 5 MG TAB PO ×2 (08:21→20:55)
[2023-08-05] MEDS: Memantine 5 MG TAB 10 MG PO ×2 (08:21→20:55)
[2023-08-05 20:10] VITALS: BP 114/76; PULSE 69; RESP 20; TEMP 36.5; O2SAT 99
[2023-08-05] MEDS: Melatonin 3 MG TAB 6 MG PO (20:55)
[2023-08-05] MEDS: traZODone 50 MG TAB PO (20:55)
[2023-08-05] MEDS: Rivaroxaban 10 MG TABLET 20 MG PO (20:56)
[2023-08-06 07:23] VITALS: BP 111/62; PULSE 55; RESP 16; TEMP 36.6; O2SAT 99
[2023-08-06] MEDS: Memantine 5 MG TAB 10 MG PO ×2 (07:57→20:01)
[2023-08-06] MEDS: OLANZapine 5 MG TAB PO ×2 (07:58→20:01)
[2023-08-06] MEDS: amLODIPine 5 MG TAB PO (07:58)
[2023-08-06] MEDS: Sertraline 50 MG TAB PO (07:58)
[2023-08-06] MEDS: Metoprolol CR 50 MG TABCR PO (07:58)
[2023-08-06] MEDS: Melatonin 3 MG TAB 6 MG PO (20:01)
[2023-08-06] MEDS: traZODone 50 MG TAB PO (20:01)
[2023-08-06] MEDS: Rivaroxaban 10 MG TABLET 20 MG PO (20:01)
[2023-08-07] MEDS: Memantine 5 MG TAB 10 MG PO ×2 (08:25→19:34)
[2023-08-07] MEDS: amLODIPine 5 MG TAB PO (08:25)
[2023-08-07] MEDS: Metoprolol CR 50 MG TABCR PO (08:26)
[2023-08-07] MEDS: OLANZapine 5 MG TAB PO ×2 (08:26→19:34)
[2023-08-07] MEDS: Sertraline 50 MG TAB PO (08:26)
[2023-08-07 08:30] VITALS: BP 108/69; PULSE 61; RESP 18; TEMP 36.5; O2SAT 99
[2023-08-07] MEDS: Rivaroxaban 10 MG TABLET 20 MG PO (19:33)
[2023-08-07] MEDS: traZODone 50 MG TAB PO (19:33)
[2023-08-07] MEDS: Melatonin 3 MG TAB 6 MG PO (19:34)
[2023-08-07 20:48] VITALS: BP 137/72; PULSE 62; RESP 18; TEMP 36.9; O2SAT 99
[2023-08-08] MEDS: Memantine 5 MG TAB 10 MG PO ×2 (08:51→20:44)
[2023-08-08] MEDS: Sertraline 50 MG TAB PO (08:51)
[2023-08-08] MEDS: Metoprolol CR 50 MG TABCR PO (08:51)
[2023-08-08] MEDS: amLODIPine 5 MG TAB PO (08:51)
[2023-08-08] MEDS: OLANZapine 5 MG TAB PO ×2 (08:52→20:44)
[2023-08-08 08:54] VITALS: BP 105/62; PULSE 56; RESP 16; TEMP 36.2; O2SAT 97
[2023-08-08] MEDS: Rivaroxaban 10 MG TABLET 20 MG PO (20:44)
[2023-08-08] MEDS: Melatonin 3 MG TAB 6 MG PO (20:44)
[2023-08-08] MEDS: traZODone 50 MG TAB PO (20:44)
[2023-08-09 07:16] VITALS: BP 104/63; PULSE 60; RESP 14; TEMP 36.8; O2SAT 97
[2023-08-09] MEDS: Metoprolol CR 50 MG TABCR PO (08:08)
[2023-08-09] MEDS: OLANZapine 5 MG TAB PO ×2 (08:08→19:12)
[2023-08-09] MEDS: amLODIPine 5 MG TAB PO (08:08)
[2023-08-09] MEDS: Memantine 5 MG TAB 10 MG PO ×2 (08:08→19:11)
[2023-08-09] MEDS: Sertraline 50 MG TAB PO (08:09)
[2023-08-09] MEDS: Melatonin 3 MG TAB 6 MG PO (19:11)
[2023-08-09] MEDS: Rivaroxaban 10 MG TABLET 20 MG PO (19:12)
[2023-08-09] MEDS: traZODone 50 MG TAB PO (19:12)
[2023-08-10 07:34] VITALS: BP 110/60; PULSE 51; RESP 16; TEMP 36.9; O2SAT 98
[2023-08-10] MEDS: amLODIPine 5 MG TAB PO (08:03)
[2023-08-10] MEDS: OLANZapine 5 MG TAB PO ×2 (08:03→19:43)
[2023-08-10] MEDS: Memantine 5 MG TAB 10 MG PO ×2 (08:03→19:43)
[2023-08-10] MEDS: Sertraline 50 MG TAB PO (08:03)
[2023-08-10] MEDS: Metoprolol CR 50 MG TABCR PO (08:03)
[2023-08-10] MEDS: Melatonin 3 MG TAB 6 MG PO (19:43)
[2023-08-10] MEDS: Rivaroxaban 10 MG TABLET 20 MG PO (19:43)
[2023-08-10] MEDS: traZODone 50 MG TAB PO (19:43)
[2023-08-11 07:58] VITALS: BP 122/63; PULSE 53; TEMP 36.6; O2SAT 99
[2023-08-11] MEDS: OLANZapine 5 MG TAB PO ×2 (08:23→20:18)
[2023-08-11] MEDS: Memantine 5 MG TAB 10 MG PO ×2 (08:23→20:18)
[2023-08-11] MEDS: amLODIPine 5 MG TAB PO (08:23)
[2023-08-11] MEDS: Sertraline 50 MG TAB PO (08:24)
[2023-08-11 19:55] VITALS: BP 166/75; PULSE 85; RESP 18; TEMP 36.5; O2SAT 99
[2023-08-11] MEDS: Melatonin 3 MG TAB 6 MG PO (20:18)
[2023-08-11] MEDS: traZODone 50 MG TAB PO (20:18)
[2023-08-11] MEDS: Rivaroxaban 10 MG TABLET 20 MG PO (20:18)
[2023-08-12 08:12] VITALS: BP 134/61; PULSE 52; RESP 14; TEMP 35.9; O2SAT 97
[2023-08-12] MEDS: OLANZapine 5 MG TAB PO ×2 (08:16→21:13)
[2023-08-12] MEDS: Memantine 5 MG TAB 10 MG PO ×2 (08:16→21:13)
[2023-08-12] MEDS: Sertraline 50 MG TAB PO (08:17)
[2023-08-12] MEDS: amLODIPine 5 MG TAB PO (08:17)
[2023-08-12] MEDS: Melatonin 3 MG TAB 6 MG PO (21:13)
[2023-08-12] MEDS: traZODone 50 MG TAB PO (21:13)
[2023-08-12] MEDS: Rivaroxaban 10 MG TABLET 20 MG PO (21:13)
[2023-08-13] MEDS: amLODIPine 5 MG TAB PO (07:37)
[2023-08-13] MEDS: Memantine 5 MG TAB 10 MG PO ×2 (07:38→20:05)
[2023-08-13] MEDS: Metoprolol CR 50 MG TABCR PO (07:38)
[2023-08-13] MEDS: OLANZapine 5 MG TAB PO ×2 (07:38→20:05)
[2023-08-13] MEDS: Sertraline 50 MG TAB PO (07:39)
[2023-08-13 07:43] VITALS: BP 133/67; PULSE 67; RESP 18; TEMP 36.3; O2SAT 98
[2023-08-13] MEDS: traZODone 50 MG TAB PO (20:05)
[2023-08-13] MEDS: Melatonin 3 MG TAB 6 MG PO (20:05)
[2023-08-14] MEDS: Rivaroxaban 10 MG TABLET 20 MG PO ×2 (01:39→20:50)
[2023-08-14] MEDS: Memantine 5 MG TAB 10 MG PO ×2 (09:05→20:50)
[2023-08-14] MEDS: amLODIPine 5 MG TAB PO (09:05)
[2023-08-14] MEDS: OLANZapine 5 MG TAB PO ×2 (09:07→20:51)
[2023-08-14] MEDS: Metoprolol CR 50 MG TABCR PO (09:07)
[2023-08-14] MEDS: Sertraline 50 MG TAB PO (09:07)
[2023-08-14 12:15] VITALS: BP 109/66; PULSE 56; RESP 16; TEMP 36.4; O2SAT 97
[2023-08-14] MEDS: traZODone 50 MG TAB PO (20:49)
[2023-08-14] MEDS: Melatonin 3 MG TAB 6 MG PO (20:50)
[2023-08-15 08:14] VITALS: BP 110/63; PULSE 48; RESP 16; TEMP 36.3; O2SAT 97
[2023-08-15] MEDS: OLANZapine 5 MG TAB PO ×2 (08:41→19:37)
[2023-08-15] MEDS: amLODIPine 5 MG TAB PO (08:41)
[2023-08-15] MEDS: Memantine 5 MG TAB 10 MG PO ×2 (08:41→19:36)
[2023-08-15] MEDS: Sertraline 50 MG TAB PO (08:41)
[2023-08-15] MEDS: Rivaroxaban 10 MG TABLET 20 MG PO (19:35)
[2023-08-15] MEDS: traZODone 50 MG TAB PO (19:36)
[2023-08-15] MEDS: Melatonin 3 MG TAB 6 MG PO (19:37)
[2023-08-15 19:42] VITALS: BP 111/66; PULSE 60; RESP 18; TEMP 36.6; O2SAT 97
[2023-08-16 07:05] VITALS: BP 133/74; PULSE 55; RESP 16; TEMP 36.8; O2SAT 98
[2023-08-16] MEDS: Memantine 5 MG TAB 10 MG PO ×2 (09:42→19:57)
[2023-08-16] MEDS: Sertraline 50 MG TAB PO (09:42)
[2023-08-16] MEDS: Metoprolol CR 50 MG TABCR PO (09:42)
[2023-08-16] MEDS: OLANZapine 5 MG TAB PO ×2 (09:42→19:57)
[2023-08-16] MEDS: amLODIPine 5 MG TAB PO (09:43)
[2023-08-16 19:10] VITALS: BP 121/71; PULSE 68; RESP 16; TEMP 36.5; O2SAT 98
[2023-08-16] MEDS: Melatonin 3 MG TAB 6 MG PO (19:57)
[2023-08-16] MEDS: traZODone 50 MG TAB PO (19:57)
[2023-08-16] MEDS: Rivaroxaban 10 MG TABLET 20 MG PO (19:57)
--- NOTE | 2023-08-17 06:00 | NUR.NOTE ---
This RN assumed care of pt at approx 1900 on 08/16/23. Pt was calm and cooperative entire shift. Pt was med compliant and slept an adequate amount of time over night with frequent safety checks. Chest rise and fall witnessed at each observation. Pt remains A&Ox4 and NAD. Pt denies pain on initial assessment. VSS. Pt states all needs met at time of assessment. Pt remains at [facility] awaiting proper placement.
[2023-08-17] MEDS: Memantine 5 MG TAB 10 MG PO ×2 (08:31→19:50)
[2023-08-17] MEDS: Metoprolol CR 50 MG TABCR PO (08:32)
[2023-08-17] MEDS: amLODIPine 5 MG TAB PO (08:32)
[2023-08-17] MEDS: OLANZapine 5 MG TAB PO ×2 (08:32→19:50)
[2023-08-17] MEDS: Sertraline 50 MG TAB PO (08:32)
[2023-08-17 08:37] VITALS: BP 113/67; PULSE 58; RESP 18; TEMP 36.5; O2SAT 98
[2023-08-17] MEDS: Melatonin 3 MG TAB 6 MG PO (19:50)
[2023-08-17] MEDS: Rivaroxaban 10 MG TABLET 20 MG PO (19:51)
[2023-08-17] MEDS: traZODone 50 MG TAB PO (19:51)
[2023-08-18] MEDS: OLANZapine 5 MG TAB PO ×2 (08:01→21:22)
[2023-08-18] MEDS: Sertraline 50 MG TAB PO (08:01)
[2023-08-18] MEDS: Memantine 5 MG TAB 10 MG PO ×2 (08:02→21:21)
[2023-08-18] MEDS: amLODIPine 5 MG TAB PO (08:02)
[2023-08-18 08:04] VITALS: BP 100/60; PULSE 56; TEMP 36.7; O2SAT 96
--- NOTE | 2023-08-18 17:34 | NUR.NOTE ---
Kaitlynn Patel, [employer] Hospitalist called asking to have a CBCD and BMP to be ordered. She wanted to order them but is unable to. I placed these orders for her. Nursing Note:
[2023-08-18 18:09] LABS: Abs Immature Grans 0.05 10^3/uL (0.0-0.06); Absolute Eosinophil Count 0.46 10^3/uL (0.0-0.7); Absolute Lymphocyte Count 2.28 10^3/uL (1.2-3.4); Absolute Monocyte Count 0.94 10^3/uL (0.1-0.8); Absolute Neutrophil Count 4.82 10^3/uL (1.2-6.7); Basophils % 1.2; Eosinophils % 5.3; HCT 38.4 % (40.0-50.0); HGB 12.6 g/dL (13.5-17.5); Immature Grans % 0.6; Lymphocytes % 26.4; MCH 30.7 pg (27.0-33.0); MCHC 32.8 % (32.0-36.0); MCV 93 fL (80-95); MPV 10.4 fL (8.0-11.0); Monocytes % 10.9; Neutrophils % 55.6; Platelet Count 194 10^3/uL (130-400); RBC 4.11 10^6/uL (4.36-5.78); RDW 14.8 % (11.8-14.1); RDW-SD 50.9 fL; WBC 8.65 10^3/uL (4.4-10.8)
[2023-08-18 18:16] LABS: Anion Gap 9.9 mmol/L (3-11); BUN 21 mg/dL (7-18); CO2 27.1 mmol/L (21.0-32.0); CREATININE 0.9 mg/dL (0.70-1.30); Calcium 8.9 mg/dL (8.5-10.1); Chloride 106 mmol/L (98-107); Glucose 136 mg/dL (74-106); Potassium 4.1 mmol/L (3.5-5.1); Sodium 143 mmol/L (136-145)
[2023-08-18] MEDS: Melatonin 3 MG TAB 6 MG PO (21:21)
[2023-08-18] MEDS: traZODone 50 MG TAB PO (21:22)
[2023-08-18] MEDS: Rivaroxaban 10 MG TABLET 20 MG PO (21:22)
[2023-08-19 08:10] VITALS: BP 129/68; PULSE 50; RESP 18; TEMP 36.7; O2SAT 98
[2023-08-19] MEDS: Sertraline 50 MG TAB PO (08:16)
[2023-08-19] MEDS: amLODIPine 5 MG TAB PO (08:16)
[2023-08-19] MEDS: OLANZapine 5 MG TAB PO ×2 (08:16→19:45)
[2023-08-19] MEDS: Memantine 5 MG TAB 10 MG PO ×2 (08:16→19:45)
--- NOTE | 2023-08-19 14:29 | W.PM.PROGNOT ---
Date of Service Date of service: 08/19/23 Time of Service: 14:30 Assessment and Plan Assessment and plan (1) Dementia with behavioral disturbance: Status: Acute Assessment and plan: Continue antipsychotics at low dose as per psych consult: Olanzapine, monitor CBC H& H 12.6 & 38.4: [place] stool Platelets 194, eosinophils 5.3 from 0.1 a month ago will keep monitoring for level >700 and skin lesions will continue to monitor CBC in 3 days then on 09/16 AM Continue Memantine, sertraline (2) Psychosis: Status: Acute Assessment and plan: As above (3) Essential hypertension: Status: Acute Assessment and plan: Continue home meds (4) Encounter for assessment of healthcare decision-making capacity: Status: Acute Assessment and plan: Psychiatric consultation done on 07/14:at this time did not have capacity to make medical decisions. (5) Psychiatric disorder: Status: Acute Assessment and plan: As above (6) History of atrial fibrillation: Status: Acute Assessment and plan: continue rivaroxaban metoprolol succinate decreased to 37.5 mg daily (7) Hypertension: Status: Chronic Assessment and plan: Continue amlodipine (8) Discharge planning issues: Status: Acute Assessment and plan: Awaiting placement f/u by CM Discussed with Dr. Padilla Subjective Subjective Patient reports: no new complaints, feels better, tolerating liquids well, tolerating a regular diet, flatus, bowel movement (every 2-3 days) and other (sleeping well, not tired); denies still having pain, diarrhea, nausea, vomiting, shortness of breath or fever Exam Narrative Exam Narrative: Constitutional The patient is sitting on bed comfortable, calm and focused, no acute distress HENMT: Facial structures with normal appearance Eyes: Well aligned, Neck: Normal ROM, no JVD, no meningeal signs Neuro:alert and oriented to self, person, place. No neurological focal deficit Resp: Clear lungs, no tachypnea Cardio: irregular rhythm, S1, S2, 2ng left intercostal murmur, pulses positive to all 4 extremities, no edema GI: Abdomen is not distended, soft and non tender, bowel sounds are present : Negative Costovertebral angle tenderness, no bladder distension Back/spine/Pelvis: No back tenderness, normal alignment Integumentary: No skin lesions or rash,no purpura Extremities: strength 5/5 to bilateral lower and upper extremities Psych: RASS 0, conguent mood and normal affect Psych Speech and Movement: speech and movement normal and not agitated Mood: congruent mood Affect: normal affect Attitude: cooperative Thought Process: normal Thought Content: normal Insight: fair Judgment: fair Objective Last Vital Signs Temp 36.7 C 08/19/23 08:10 Pulse 50 L 08/19/23 08:10 Resp 18 08/19/23 08:10 BP 129/68 08/19/23 08:10 Pulse Ox 98 08/19/23 08:10 Laboratory Results - last 24 hr 08/18/23 17:45 WBC 8.65 RBC 4.11 L Hgb 12.6 L Hct 38.4 L MCV 93 MCH 30.7 MCHC 32.8 RDW 14.8 H Plt Count 194 MPV 10.4 Immature Gran % 0.6 Neutrophils % 55.6 Lymphocytes % 26.4 Monocytes % 10.9 Eosinophils % 5.3 Basophils % 1.2 Nucleated RBC % 0.0 Absolute Neutrophils 4.82 Absolute Lymphocytes 2.28 Absolute Monocytes 0.94 H Absolute Eosinophils 0.46 Absolute Basophils 0.10 Sodium 143 Potassium 4.1 Chloride 106 Carbon Dioxide 27.1 Anion Gap 9.9 BUN 21 H Creatinine 0.9 Est GFR (CKD-EPI 2020) 85.80 Glucose 136 H Calcium 8.9 Time Spent with Patient Time Spent with Patient: >50 minutes Time was spent: preparing to see the patient(eg.review tests), obtaining and/or reviewing separately otained hiistory, ordering medications,tests, procedures, referring, communicating with other health intensive care nurse, indepentently interpreting results, counseling the patient and care coordination
--- NOTE | 2023-08-19 15:50 | CMACTNOTE_ITS ---
Date of service: 08/15/23 Time of Service: 16:00 Care Management Activity Note Activity Note Text Activity Note Text: Jorge Luis remains in Zone B in the ED, where he is in a safe, secure environment. He has been interacting well with staff and has had no episodes of aggression nor has he made any attempts to leave. Jorge Luis enjoys looking out of the windows and doors but declined the offer to go outside for some fresh air. He enjoys reading the newspaper and watching tv. Jorge Luis also takes frequent naps but is happy to interact with other patients and staff when awake. Per his daughter Victoria, a long term care administrator Medicaid application was submitted in mid-June..
[2023-08-19] MEDS: Melatonin 3 MG TAB 6 MG PO (19:45)
[2023-08-19] MEDS: Docusate Sodium 100 MG CAP PO (19:45)
[2023-08-19] MEDS: traZODone 50 MG TAB PO (19:46)
[2023-08-19] MEDS: Rivaroxaban 10 MG TABLET 20 MG PO (19:46)
[2023-08-20 08:21] VITALS: BP 119/73; PULSE 50; RESP 16; TEMP 36.6; O2SAT 96
[2023-08-20] MEDS: Memantine 5 MG TAB 10 MG PO ×2 (08:23→19:50)
[2023-08-20] MEDS: Docusate Sodium 100 MG CAP PO ×2 (08:24→19:50)
[2023-08-20] MEDS: Sertraline 50 MG TAB PO (08:24)
[2023-08-20] MEDS: Metoprolol CR 25 MG TABCR 37.5 MG PO (08:24)
[2023-08-20] MEDS: OLANZapine 5 MG TAB PO ×2 (08:24→19:51)
[2023-08-20] MEDS: amLODIPine 5 MG TAB PO (08:25)
--- NOTE | 2023-08-20 15:39 | NUR.NOTE ---
Nursing Note: this RN reminded patient provider wanted to get a stool sample from him to test for blood in stool. Patient stated I told that doctor she was ridiculous
--- NOTE | 2023-08-20 18:47 | NUR.NOTE ---
Nursing Note: patient independently took shower this RN helped shave face. After shower this RN offered cookies and hot cocoa which was and happily received by patient.
[2023-08-20] MEDS: traZODone 50 MG TAB PO (19:50)
[2023-08-20] MEDS: Melatonin 3 MG TAB 6 MG PO (19:50)
[2023-08-20] MEDS: Rivaroxaban 10 MG TABLET 20 MG PO (19:50)
[2023-08-21] MEDS: Metoprolol CR 25 MG TABCR 37.5 MG PO (10:30)
[2023-08-21] MEDS: Sertraline 50 MG TAB PO (10:30)
[2023-08-21] MEDS: amLODIPine 5 MG TAB PO (10:30)
[2023-08-21] MEDS: Docusate Sodium 100 MG CAP PO ×2 (10:30→19:39)
[2023-08-21] MEDS: OLANZapine 5 MG TAB PO ×2 (10:30→19:39)
[2023-08-21] MEDS: Memantine 5 MG TAB 10 MG PO ×2 (10:30→19:39)
[2023-08-21 10:55] VITALS: BP 126/74; PULSE 56; TEMP 36.8; O2SAT 95
--- NOTE | 2023-08-21 11:06 | NUR.NOTE ---
AM meds given late d/t pt sleeping. I attempted to wake him for meds, he states I'll take them in a little bit when I wake up :
[2023-08-21] MEDS: Polyethylene Glycol 3350 17 GM PACKET PO (16:57)
[2023-08-21] MEDS: Melatonin 3 MG TAB 6 MG PO (19:39)
[2023-08-21] MEDS: Rivaroxaban 10 MG TABLET 20 MG PO (19:39)
[2023-08-21] MEDS: traZODone 50 MG TAB PO (19:39)
[2023-08-21 19:40] VITALS: BP 104/67; PULSE 54; RESP 18; TEMP 36.9; O2SAT 98
[2023-08-22 06:40] LABS: HCT 41.8 % (40.0-50.0); HGB 13.5 g/dL (13.5-17.5); MCH 30.4 pg (27.0-33.0); MCHC 32.3 % (32.0-36.0); MCV 94 fL (80-95); Platelet Count 183 10^3/uL (130-400); RBC 4.44 10^6/uL (4.36-5.78); RDW 14.9 % (11.8-14.1); RDW-SD 52.2 fL; WBC 7.66 10^3/uL (4.4-10.8)
[2023-08-22 08:12] VITALS: BP 118/59; PULSE 51; TEMP 36.4; O2SAT 99
[2023-08-22] MEDS: Sertraline 50 MG TAB PO (08:37)
[2023-08-22] MEDS: Docusate Sodium 100 MG CAP PO ×2 (08:37→20:12)
[2023-08-22] MEDS: OLANZapine 5 MG TAB PO ×2 (08:37→20:12)
[2023-08-22] MEDS: amLODIPine 5 MG TAB PO (08:37)
[2023-08-22] MEDS: Metoprolol CR 25 MG TABCR 37.5 MG PO (08:37)
[2023-08-22] MEDS: Memantine 5 MG TAB 10 MG PO ×2 (08:37→20:12)
--- NOTE | 2023-08-22 09:10 | CHAPLAIN ---
I visited with Jorge Luis a few times weeks and yesterday. I usually bring him a newspaper. We've met in the meeting room and also in his room. 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 He has repeatedly said that he'll be going home.
[2023-08-22] MEDS: Melatonin 3 MG TAB 6 MG PO (20:12)
[2023-08-22] MEDS: Rivaroxaban 10 MG TABLET 20 MG PO (20:13)
[2023-08-22] MEDS: traZODone 50 MG TAB PO (20:13)
--- NOTE | 2023-08-23 07:53 | NUR.NOTE ---
Patient has been room so far this shift. Offers no complaints of pain or discomfort. continues to be monitored via camera. NAD noted. Will continue to reassure patient and offer verbal encouragement. :
[2023-08-23] MEDS: Metoprolol CR 25 MG TABCR 37.5 MG PO (08:52)
[2023-08-23] MEDS: Memantine 5 MG TAB 10 MG PO ×2 (08:54→20:24)
[2023-08-23] MEDS: Docusate Sodium 100 MG CAP PO ×2 (08:54→20:24)
[2023-08-23] MEDS: amLODIPine 5 MG TAB PO (08:54)
[2023-08-23] MEDS: OLANZapine 5 MG TAB PO ×2 (08:56→20:24)
[2023-08-23] MEDS: Sertraline 50 MG TAB PO (09:00)
[2023-08-23 11:50] VITALS: BP 122/49; PULSE 51; TEMP 36.3; O2SAT 98
--- NOTE | 2023-08-23 14:08 | NUR.NOTE ---
Patient resting quietly. No acute distress noted. Vin continue to monitor. Nursing Note:
--- NOTE | 2023-08-23 17:11 | NUR.NOTE ---
Patient up to eat dinner. No complaints this shift. Bright affect, pleasent and cooperative.
[2023-08-23] MEDS: Rivaroxaban 10 MG TABLET 20 MG PO (20:24)
[2023-08-23] MEDS: traZODone 50 MG TAB PO (20:24)
[2023-08-23] MEDS: Melatonin 3 MG TAB 6 MG PO (20:24)
--- NOTE | 2023-08-24 07:12 | NUR.NOTE ---
report received. all patients sleeping. Milieu quiet.:
[2023-08-24] MEDS: OLANZapine 5 MG TAB PO ×2 (07:48→20:22)
[2023-08-24] MEDS: Docusate Sodium 100 MG CAP PO ×2 (07:48→20:22)
[2023-08-24] MEDS: amLODIPine 5 MG TAB PO (07:49)
[2023-08-24] MEDS: Memantine 5 MG TAB 10 MG PO ×2 (07:49→20:22)
[2023-08-24] MEDS: Metoprolol CR 25 MG TABCR 37.5 MG PO (07:51)
[2023-08-24] MEDS: Sertraline 50 MG TAB PO (07:59)
[2023-08-24 08:01] VITALS: BP 125/82; PULSE 79; RESP 16; TEMP 36.8; O2SAT 99
--- NOTE | 2023-08-24 10:12 | NUR.NOTE ---
Patient has been compliant with meds and meals. No complaints of pain or discomfort. Will Continue to monitor.
--- NOTE | 2023-08-24 12:13 | NUR.NOTE ---
Patient has been out of his room. He denies any complaints of pain or discomfort. Pleasent and cooperative with care. Will continue to monitor.
--- NOTE | 2023-08-24 13:34 | NUR.NOTE ---
Patient woke up while being in bed, remade his bed and went back to sleep. He offers no complaints of pain or discomfort. He smiles when spoken to and actively converses in a conversation. Will continue to monitor and report any changes.
--- NOTE | 2023-08-24 14:11 | NUR.NOTE ---
Patient resting quietly in bed. Eyes closed breathing deeply.
--- NOTE | 2023-08-24 17:24 | NUR.NOTE ---
Patient had a good shift this date. Compliant with Nursing and followed careplan. Denied any complaints of pain or discomfort. Will report findings to shift supervisor rn. Nursing Note:
[2023-08-24] MEDS: Melatonin 3 MG TAB 6 MG PO (20:22)
[2023-08-24] MEDS: traZODone 50 MG TAB PO (20:22)
[2023-08-24] MEDS: Rivaroxaban 10 MG TABLET 20 MG PO (20:22)
--- NOTE | 2023-08-25 07:45 | RT.EKG_ITS ---
APPROVED REPORT Exam: Resting ECG Reason for Exam: chest pain Patient Location: I HR:58 bpm ECG Measurements Heart Rate 58 AXIS MT [id number] P [id number] QRSd 100 QRS 72 QT 447 T 26 QTc 440 Conclusion Atrial fibrillation...? atrial activity Low voltage, extremity leads...all extremity leads <0.5mV
[2023-08-25 07:58] VITALS: BP 124/67; PULSE 56; TEMP 36.9; O2SAT 98
--- NOTE | 2023-08-25 08:41 | NUR.NOTE ---
Nursing Note: PT explained to this RN that his chest hurt with deep breath over his pacemaker site. PT feels he slept funny last night and think this is the cause of the discomfort. This RN contacted hospitalist, EKG performed. VS WNL (see chart for current VS) Patient ate 100% of breakfast, self care with all ADLS this AM.
[2023-08-25] MEDS: OLANZapine 5 MG TAB PO ×2 (09:29→21:53)
[2023-08-25] MEDS: Docusate Sodium 100 MG CAP PO ×2 (09:29→21:53)
[2023-08-25] MEDS: Memantine 5 MG TAB 10 MG PO ×2 (09:29→21:53)
[2023-08-25] MEDS: amLODIPine 5 MG TAB PO (09:29)
[2023-08-25] MEDS: Sertraline 50 MG TAB PO (09:29)
[2023-08-25] MEDS: Metoprolol CR 25 MG TABCR 37.5 MG PO (09:29)
[2023-08-25] MEDS: Melatonin 3 MG TAB 6 MG PO (21:53)
[2023-08-25] MEDS: Rivaroxaban 10 MG TABLET 20 MG PO (21:53)
[2023-08-25] MEDS: traZODone 50 MG TAB PO (21:54)
--- NOTE | 2023-08-26 07:08 | DSE_ITS ---
Date of service: 08/26/23 Time of Service: 09:08 DS: Diagnosis Discharge Diagnosis (1) Dementia with behavioral disturbance: Status: Acute Asessment and Plan: Continue antipsychotics at low dose as per psych consult: Olanzapine, monitor CBC (2) Psychosis: Status: Acute (3) Essential hypertension: Status: Acute (4) Encounter for assessment of healthcare decision-making capacity: Status: Acute Asessment and Plan: Psychiatric consultation done on 07/14:at this time did not have capacity to make medical decisions. (5) Psychiatric disorder: Status: Acute (6) History of atrial fibrillation: Status: Acute Asessment and Plan: continue rivaroxaban metoprolol succinate decreased to 37.5 mg daily (7) Hypertension: Status: Chronic (8) Discharge planning issues: Status: Acute Discharge Plan Disposition Patient Disposition: Nursing Home Facility(SNF) Condition: Good Discharge Details Reason For Visit: AMS,Suicidal Ideation, Violent Behavior Admit Date/Time: 07/15/23 21:03 Admit Provider: Vernon Mata Attending Provider: Vernon Mata Primary Care Provider: Unknown,Unknown Hospital Course Hospital Course: Patient admitted to [facility] bed to status July 18, 2023 for psychiatric disorder, Lewy body dementia and behavioral disturbance. During his stated RVR H he had no behavioral disturbances, and was overall pleasant. Ultimately long- term care facility accepted patient. Home Meds and New Rx's Prescriptions: New albuterol sulfate 2.5 mg /3 mL (0.083 %) Solution For Nebulization 2.5 mg UPD Q2H PRN PRNQty: 180 0RF olanzapine 5 mg Tablet 5 mg PO BID Qty: 90 0RF melatonin 3 mg Tablet 6 mg PO 1999 Qty: 90 0RF amlodipine 5 mg Tablet 5 mg PO DAILY Qty: 90 0RF docusate sodium [Colace] 100 mg Capsule 100 mg PO BID Qty: 90 0RF metoprolol succinate 25 mg Tablet Extended Release 24 Hr 37.5 mg PO DAILY Qty: 90 0RF memantine 5 mg Tablet 10 mg PO BID Qty: 90 0RF trazodone 50 mg Tablet 50 mg PO 1999 Qty: 90 0RF polyethylene glycol 3350 17 gram Powder In Packet 17 g PO DAILY PRN PRN (Reason: Constipation) Qty: 30 0RF sertraline 50 mg Tablet 50 mg PO DAILY Qty: 90 0RF Xarelto 10 mg Tablet 20 mg PO 1999 Qty: 90 0RF Discontinued Xarelto 20 mg tablet 20 mg PO DAILY Rx Instructions: must administer with evening meal metoprolol succinate 50 mg tablet extended release 24 hr 50 mg PO DAILY sertraline 50 mg tablet 50 mg PO DAILY polyethylene glycol 3350 [Miralax] 17 gram/dose powder 17 g PO DAILY PRN memantine 10 mg tablet 10 mg PO BID acetaminophen 325 mg Tablet 650 mg PO Q6H PRN PRNQty: 0 0RF trazodone 50 mg Tablet 50 mg PO HS Qty: 0 0RF olanzapine 5 mg Tablet 5 mg PO BID Qty: 0 0RF amlodipine 5 mg Tablet 5 mg PO DAILY Qty: 0 0RF magnesium hydroxide [Milk of Magnesia] 400 mg/5 mL Suspension 30 ml PO DAILY PRN PRNQty: 0 0RF docusate sodium [Colace] 100 mg Capsule 100 mg PO BID PRN PRN (Reason: Constipation) Qty: 0 0RF melatonin 3 mg capsule 6 mg PO HS PRNQty: 0 0RF Discharge Instructions Activity:: Activity as Tolerated Equipment/Supplies:: No Equipment Needed Diet:: As Tolerated Discharge Orders Discharge Orders: Discharge Order (Routine); Ordered 08/26/23 Ordered By: Vernon Mata DS: Summary Time Spent with Patient providing and/or coordinating discharge services: Greater than 30 minutes Status at Discharge Functional status at discharge: independent ambulation Overall status at discharge: patient is back to baseline Mental Status: mental status grossly normal Speech and Movement: speech and movement normal Mood: congruent mood Affect: normal affect Quality:SDOH Health Related Social Needs: Health related social needs details The patient lives at home alone and does not currently have any heat. Exam Narrative Exam Narrative: Well-appearing older gentleman sitting up in the bed in no acute distress, ANO x 4, calm, heart irregularly irregular, lungs clear to auscultation bilaterally Psych Mental Status: mental status grossly normal Speech and Movement: speech and movement normal Mood: congruent mood Affect: normal affect DS: Data Vitals/I&O Vitals and I&O: Vital Signs Temperature 98.5 F 08/25/23 07:58 Temperature Source Temporal Artery Scan 08/25/23 07:58 Pulse 56 L 08/25/23 07:58 Pulse Rhythm Regular 08/25/23 21:55 Respiratory Rate 16 08/24/23 08:01 Respiratory Effort Normal, Non-Labored 08/25/23 21:55 Respiratory Depth Normal 08/25/23 21:55 Respiratory Pattern Normal 08/25/23 21:55 Blood Pressure 124/67 08/25/23 07:58 Blood Pressure Position Sitting 07/15/23 22:06 Pulse Oximetry 98 08/25/23 07:58 Oxygen Delivery Method Room Air 08/25/23 07:58 Oxygen Flow Rate 0 08/25/23 07:58 Pain Level 3 08/25/23 07:58 Intake & Output 08/25/23 08/26/23 08/26/23 17:59 05:59 17:59 Other: Urine Appearance Clear Comment per pt voided x1 PFSH All Active Problems (Updated 08/20/23 @ 15:10 by SHERRY RODRIGUEZ) Psychosis (Acute) Dementia with Lewy bodies (Acute) Discharge planning issues (Acute) Hypertension (Chronic) History of atrial fibrillation (Acute) Lewy body dementia with behavioral disturbance (Acute) Patient incapable of making informed decisions (Acute) Encounter for assessment of healthcare decision-making capacity (Acute) Essential hypertension (Acute) Psychosis (Acute) Dementia with behavioral disturbance (Acute) Psychiatric disorder (Acute) Suicide attempt (Acute) Aggressive behavior (Acute) Social History Smoking risk assessment performed?: No Details: Information not obtained by prior shift. Time Spent with Patient Time Spent with Patient: <45 minutes Time was spent: preparing to see the patient(eg.review tests), obtaining and/or reviewing separately otained hiistory, ordering medications,tests, procedures, referring, communicating with other health child caregiver, indepentently interpreting results, counseling the patient and care coordination
[2023-08-26 08:12] VITALS: BP 128/74; PULSE 54; TEMP 36.7; O2SAT 95
[2023-08-26] MEDS: Docusate Sodium 100 MG CAP PO (08:30)
[2023-08-26] MEDS: Sertraline 50 MG TAB PO (08:30)
[2023-08-26] MEDS: Memantine 5 MG TAB 10 MG PO (08:31)
[2023-08-26] MEDS: Metoprolol CR 25 MG TABCR 37.5 MG PO (08:31)
[2023-08-26] MEDS: amLODIPine 5 MG TAB PO (08:31)
[2023-08-26] MEDS: OLANZapine 5 MG TAB PO (08:31)
--- NOTE | 2023-08-26 09:39 | NUR.NOTE ---
Notified pt of his transfer to [facility]. Pt states he wants to go home but states he understands the plan. Hearing aids applied. Hearing aid train clerk and all belongings gathered to give to Henrik at transport. Spoke with Sharifa at [facility] and she is aware of patients transfer and has no questions at this time.
== END 2023-08-26 13:44 | disposition skilled nursing facility (03) | DRG 57 ==
LOC: ER 08-20 14:24 → EDHOLD 08-20 15:04
PROVIDERS: Nurse Practitioner Acute Care; Admitting Provider Family Medicine; Emergency Provider Student in an Organized Health Care Education/Training Program; Visit Provider Family Medicine
DX: G31.83 Neurocognitive disorder with Lewy bodies (principal); F02.82 Dementia in other diseases classified elsewhere, unspecified severity, with psychotic disturbance; F02.811 Dementia in other diseases classified elsewhere, unspecified severity, with agitation; R45.851 Suicidal ideations; Z79.899 Other long term (current) drug therapy; Z79.01 Long term (current) use of anticoagulants; I10 Essential (primary) hypertension; I48.91 Unspecified atrial fibrillation; F99 Mental disorder, not otherwise specified
CPT/HCPCS: 00123; 80048; 85027; 99285; 99306; 99316; 85025; 99223; 99232; 99233; 99310